=== PATIENT | female | born 1995 | race Caucasian/White ===

== ENCOUNTER 2017-02-19 14:15 | Inpatient (IN) | payer MEDICAID, OTHER ==
[2017-02-19 15:44] LABS: Bilirubin,Urine NEG (Negative); Blood,Urine LG (Negative); Ketones,Urine 80 mg/dL (Negative); Leukocyte Esterase,Urine NEG (Negative); Mucus,Urine FEW /HPF; Nitrite,Urine NEG (Negative); Urobilinogen,Urine < 2.0 mg/dL (<2.0)
[2017-02-19 15:59] LABS: Basophils % (Auto) 0.2 % (0.0-1.8); Hematocrit 46.9 % (30.3-42.9); Hemoglobin 15.2 gm/dl (10.1-14.3); Mean Corpuscular HGB Conc 33 % (30-34); Mean Corpuscular Hemoglobin 28 pg (28-32); Mean Corpuscular Volume 87 fl (79-97); Platelet Count 212 K/mm3 (140-440); Red Blood Count 5.41 M/mm3 (3.65-5.03); Red Cell Distribution Width 13.5 % (13.2-15.2)
[2017-02-19 16:03] LABS: BUN/Creatinine Ratio 14.28; Blood Urea Nitrogen 10 mg/dL (7-17); Calcium 8.7 mg/dL (8.4-10.2); Chloride 93.7 mmol/L (98-107); Glucose 352 mg/dL (65-100); Potassium 3.6 mmol/L (3.6-5.0); Sodium 131 mmol/L (137-145)
[2017-02-19 16:11] LABS: Anion Gap 34 mmol/L
[2017-02-19 16:12] LABS: Carbon Dioxide 7 mmol/L (22-30)
[2017-02-19] MEDS ORDERED: NACL 0.9% 1000 ML 2,000 ML ONE (16:26)
[2017-02-19] MEDS ORDERED: NACL 0.9% 1000 ML 1,000 ML IV ONE (16:36)
[2017-02-19] MEDS ORDERED: D50W (25GM) IV PRN ×2 (16:36→22:22)
--- NOTE | 2017-02-19 16:56 | Emergency Department Report ---
HPI - General Chief Complaint: Hyperglycemia Time Seen by Provider: 02/19/17 16:35 - HPI HPI: This is a 21-year-old female presents emergency Department with a complaint of elevated blood sugar, cough, subjective fevers and sore throat. The patient says that all of her family members at home were dealing with the flu and therefore she feels like she got the flu. Today the patient went to a clinic in order to be started on medication but was found to have a blood sugar of greater than 400 and told to come to the emergency department. The patient has a history of gestational diabetes that occurred 3 years ago and the patient has been diet controlled since that time or thought that the diabetes has resolved. She denies any headache, visual change, chest pain, shortness breath , nausea, vomiting. She denies any other past medical history. She does not have a primary care doctor. ED Past Medical Hx - Past Medical History Previous Medical History?: Yes Hx Hypertension: No Hx Congestive Heart Failure: No Hx Diabetes: Yes (type 1) Hx Deep Vein Thrombosis: No Hx Renal Disease: No Hx Sickle Cell Disease: No Hx Seizures: No Hx Asthma: No Hx COPD: No Hx HIV: No - Surgical History Past Surgical History?: No - Social History Smoking Status: Never Smoker Substance Use Type: None - Medications Home Medications: Home Medications Medication Instructions Recorded Confirmed Last Taken Type No Known Home Medications [No 02/19/17 02/19/17 Unknown History Reported Home Medications] ED Review of Systems ROS: Stated complaint: HYPERGLYCEMIA Other details as noted in HPI Comment: All other systems reviewed and negative Constitutional: chills, fever Eyes: as per HPI ENT: throat pain. denies: ear pain Respiratory: cough. denies: wheezing Cardiovascular: denies: chest pain, palpitations Gastrointestinal: denies: abdominal pain, nausea, diarrhea Genitourinary: denies: urgency, dysuria, discharge Musculoskeletal: denies: back pain, joint swelling, arthralgia Skin: denies: rash, lesions Neurological: denies: headache, weakness, paresthesias Physical Exam - Physical Exam Vital Signs: Vital Signs 02/19/17 02/19/17 14:57 16:34 Temperature 98.7 F Pulse Rate 120 H 112 H Respiratory 18 25 H Rate Blood Pressure 124/86 O2 Sat by Pulse 100 98 Oximetry Physical Exam: GENERAL: The patient is well-developed well-nourished. HEENT: Normocephalic. Atraumatic. Extraocular motions are intact. Patient has moist mucous membranes. Pupils equal reactive to light bilaterally. 2 horizontal nystagmus. NECK: Supple. Trachea is midline. CHEST/LUNGS: Clear to auscultation. There is no respiratory distress noted. HEART/CARDIOVASCULAR: Regular. There is mild to moderate tachycardia. There is no gallop rub or murmur. ABDOMEN: Abdomen is soft, nontender. Patient has normal bowel sounds. There is no abdominal distention. SKIN: Skin is warm and dry. NEURO: The patient is awake, alert, and oriented. The patient is cooperative. The patient has no focal neurologic deficits. The patient has normal speech. Cranial nerves II through XII grossly intact. MUSCULOSKELETAL: There is no tenderness or deformity. There is no limitation range of motion. There is no evidence of acute injury. Cap refill less than 2 seconds. ED Course Vital Signs 02/19/17 02/19/17 14:57 16:34 Temperature 98.7 F Pulse Rate 120 H 112 H Respiratory 18 25 H Rate Blood Pressure 124/86 O2 Sat by Pulse 100 98 Oximetry ED Medical Decision Making - Lab Data Result diagrams: 02/19/17 15:33 02/19/17 16:59 - Medical Decision Making 21-year-old female presents to the emergency Department with complaints of elevated blood sugar found at a clinic where she went to discuss sore throat and exposure to flu. Patient is being tested for both strep and influenza but those results are not back yet. The patient has hyperglycemia but worst, the patient has high anion gap metabolic acidosis with a pH of 7 and a current bicarbonate level of 5. Patient placed on an insulin drip and is receiving IV fluid resuscitation. She'll be admitted to the ICU is been accepted for admission by the hospitalist, Dr. Van. - Differential Diagnosis influenza, strep pharyngitis, DKA, HHNK Critical Care Time: No Critical care attestation.: If time is entered above; I have spent that time in minutes in the direct care of this critically ill patient, excluding procedure time. ED Disposition Clinical Impression: Dehydration, High anion gap metabolic acidosis DKA (diabetic ketoacidoses) Qualifiers: Diabetes mellitus type: other specified (including DACIA) Diabetes mellitus complication detail: without coma Qualified Code(s): E13.10 - Other specified diabetes mellitus with ketoacidosis without coma Disposition: OP ADMITTED IP TO THIS HOSP Is pt being admited?: Yes Condition: Stable Instructions: Diabetic Ketoacidosis (ED)
[2017-02-19] MEDS ORDERED: NovoLIN R 100 UNITS in NACL 0.9% 99 ML IV SCH (17:00)
--- NOTE | 2017-02-19 17:40 | Admit Criteria Form ---
Admission Criteria Documentation: DIABETES Clinical Indications for Admission to Inpatient Care (Place 'X' for any and all applicable criteria): Admission is indicated by presence of ALL (if I & II) or ANY ONE (if III or IV) of the following (1)(2)(3)(4): [X]I. Diabetes is uncontrolled as indicated by ANY ONE of the following: [X]a) Diabetic ketoacidosis as indicated by ALL of the following (8): [X]i) Hyperglycemia (eg, plasma glucose greater than 200 mg/ dL (11.1 mmol/L)) [X]ii) Acidosis (eg, arterial pH less than 7.30, serum bicarbonate level less than 15 mEq/L (mmol/L)) [ ]iii) Moderate ketonuria or ketonemia [ ]b) Hyperglycemic hyperosmolar state as indicated by ALL of the following(9)(10): [ ]i) Neurologic dysfunction (eg, stupor, coma, hemiparesis , seizure)(13) [ ]ii) Plasma glucose greater than 600 mg/dL (33.3 mmol/L) [ ]iii) Serum osmolality greater than 320 mOsm/kg (mmol/kg) [ X]c) Severe signs or symptoms secondary to hyperglycemia indicated by ANY ONE of the following: [ ]i) Altered mental status(10) [ ]ii) Significant hypovolemia or dehydration [ ]iii) Intractable nausea or vomiting [ ]iv) Unexplained fever or severe infection [X ]v) Severe electrolyte abnormality (eg, hypokalemia, hyperkalemia, hypernatremia) [ ]II. Management at other levels of care (Also use Diabetes: Observation Care as appropriate) is not feasible because of ANY ONE of the following: [ ]a) Condition was not adequately corrected with treatment at other levels of care. [ ]b) Treatment at other levels of care is not appropriate because of condition severity (eg, hyperosmolar coma). [ ]III. Contraindications and/or Inappropriate clinical situations for Observational Care in patients with Diabetes, when ANY ONE of the following is required: [ ]a) Patient require specific diagnostic workup or therapeutic intervention 22 [ ]b) Patient with abnormal vital signs or altered mental status 23 [ ]IV. General contraindications and/or Inappropriate clinical situations for Observational Care in patients with Diabetes, when ANY ONE of the following is required: [ ]a) Prediction of prolongation of LOS based on ANY ONE of the following may be considered as a contraindication for observational care 2, 3, 4, 5, 6, 7, 8, 9, 10, 11 [ ]i) Age > 65 yrs. [ ]ii) Patient arriving by ambulance [ ]iii) Patient with high acuity [ ]iv) Patient requiring vital sign monitoring [ ]v) Patient on IV medication [ ]b) Systolic blood pressures 180mmHg 3,12 [ ]c) Patient with altered mental status including delirium and other alteration of consciousness, (3) [ ]d) Patient whose discharge disposition will be to a longterm home or rehabilitation home should not be managed in Emergency Department Observation Unit. CMS rule requires 3 days hospital stay before such placement.3,13 [ ]e) Patient with failure to thrive due to broad array of etiologies 3,16,17 [ ]f) Inability to ambulate 3,14 Extended stay beyond goal length of stay may be needed for(3)(20): [ ]a) Treatment of precipitating causes [ ]b) Development of hypoglycemia [ ]c) Complications of treatment [ ]d) Complications of decompensated diabetes (eg, acute gastric dilatation, persistent metabolic or neurologic derangement) [ ]e) Active Comorbidities [ ]f) Older patients( 65 years or older) The original [employer] content created by [employer] has been revised. The portions of the content which have been revised are identified through the use of italic text or in bold,and [facility] has neither reviewed nor approved the modified material. All other unmodified content is copyright [employer]. Please see references footnoted in the original [employer] edition 2016 Admission Criteria Met: Yes
[2017-02-19 17:41] LABS: BUN/Creatinine Ratio 18.33; Blood Urea Nitrogen 11 mg/dL (7-17); Calcium 8.2 mg/dL (8.4-10.2); Chloride 97.6 mmol/L (98-107); Glucose 340 mg/dL (65-100); Magnesium 1.8 mg/dL (1.7-2.3); Phosphorous 3.4 mg/dL (2.5-4.5); Potassium 3.5 mmol/L (3.6-5.0); Sodium 131 mmol/L (137-145)
[2017-02-19 17:44] LABS: Anion Gap 32 mmol/L; Carbon Dioxide 5 mmol/L (22-30)
[2017-02-19] MEDS ORDERED: DILAUDID IV PRN (17:53)
[2017-02-19] MEDS: ZOFRAN IV PRN (18:01)
[2017-02-19] MEDS ORDERED: DILAUDID IV ONE (20:16)
[2017-02-19 20:18] LABS: Blood Urea Nitrogen 9 mg/dL (7-17); Calcium 7.4 mg/dL (8.4-10.2); Chloride 103.6 mmol/L (98-107); Glucose 208 mg/dL (65-100); Sodium 134 mmol/L (137-145)
[2017-02-19 20:23] LABS: Anion Gap 26 mmol/L
[2017-02-19 20:25] LABS: Carbon Dioxide 7 mmol/L (22-30)
[2017-02-19] MEDS ORDERED: D5W/0.45% NACL/KCL 20 MEQ 20 MEQ/1,000 ML BAG IV ONE (21:24)
[2017-02-19 21:31] LABS: Blood Urea Nitrogen 9 mg/dL (7-17); Calcium 7.5 mg/dL (8.4-10.2); Chloride 105.8 mmol/L (98-107); Glucose 172 mg/dL (65-100); Sodium 134 mmol/L (137-145)
[2017-02-19] MEDS: D5W/0.45% NACL/KCL 20 MEQ 20 MEQ/1,000 ML BAG IV SCH (21:45)
[2017-02-19 21:55] LABS: Carbon Dioxide 7 mmol/L (22-30)
[2017-02-19 21:57] LABS: Anion Gap 24 mmol/L; Potassium 2.9 mmol/L (3.6-5.0)
--- NOTE | 2017-02-19 22:15 | Event Note ---
Date: 02/19/17 See H/p in reports DKA Noncompliant
[2017-02-19] MEDS ORDERED: MILK OF MAGNESIA PO PRN (22:17)
[2017-02-19] MEDS ORDERED: AMBIEN PO PRN (22:17)
[2017-02-19] MEDS ORDERED: ALUM-MAG HYDROX-SIMETH 200-200-20MG/5ML PO PRN (22:17)
[2017-02-19] MEDS ORDERED: DULCOLAX PR PRN (22:17)
[2017-02-19 23:17] LABS: Blood Urea Nitrogen 9 mg/dL (7-17); Calcium 7.5 mg/dL (8.4-10.2); Chloride 105.3 mmol/L (98-107); Glucose 180 mg/dL (65-100); Magnesium 1.5 mg/dL (1.7-2.3); Phosphorous 1.4 mg/dL (2.5-4.5); Sodium 133 mmol/L (137-145)
[2017-02-19] MEDS: NovoLIN R 100 UNITS in NACL 0.9% 99 ML IV SCH (23:17)
[2017-02-19] MEDS: KCL 10MEQ/100ML 10 MEQ/100 ML BAG IV SCH (23:23)
[2017-02-19 23:29] LABS: Anion Gap 23 mmol/L; Carbon Dioxide 8 mmol/L (22-30)
[2017-02-20] MEDS ORDERED: KCL 10MEQ/100ML 10 MEQ/100 ML BAG IV ONE (00:01)
[2017-02-20] MEDS ORDERED: DILAUDID ONE (00:02)
[2017-02-20] MEDS ORDERED: ZOFRAN ONE (00:02)
[2017-02-20 00:15] LABS: Blood Urea Nitrogen 8 mg/dL (7-17); Calcium 7.6 mg/dL (8.4-10.2); Chloride 104.4 mmol/L (98-107); Glucose 204 mg/dL (65-100); Sodium 132 mmol/L (137-145)
[2017-02-20 00:19] LABS: Anion Gap 24 mmol/L; Carbon Dioxide 7 mmol/L (22-30)
[2017-02-20] MEDS: ZOFRAN IV PRN (01:10)
[2017-02-20] MEDS: DILAUDID IV PRN ×7 (01:10→21:18)
[2017-02-20] MEDS: KCL 10MEQ/100ML 10 MEQ/100 ML BAG IV SCH ×3 (03:15→04:32)
[2017-02-20 04:31] LABS: Blood Urea Nitrogen 8 mg/dL (7-17); Calcium 7.7 mg/dL (8.4-10.2); Glucose 243 mg/dL (65-100); Potassium 3.1 mmol/L (3.6-5.0); Sodium 132 mmol/L (137-145)
[2017-02-20 04:36] LABS: Anion Gap 20 mmol/L; Carbon Dioxide 8 mmol/L (22-30)
[2017-02-20 07:59] LABS: Anion Gap 18 mmol/L; Blood Urea Nitrogen 7 mg/dL (7-17); Calcium 7.9 mg/dL (8.4-10.2); Carbon Dioxide 10 mmol/L (22-30); Chloride 106.3 mmol/L (98-107); Glucose 216 mg/dL (65-100); Potassium 3.1 mmol/L (3.6-5.0); Sodium 131 mmol/L (137-145)
[2017-02-20] MEDS: NovoLIN R 100 UNITS in NACL 0.9% 99 ML IV SCH (09:28)
[2017-02-20] MEDS ORDERED: K-DUR PO ONE (09:36)
[2017-02-20] MEDS: LOVENOX SUB-Q SCH (10:02)
[2017-02-20 11:25] LABS: Anion Gap 18 mmol/L; Blood Urea Nitrogen 5 mg/dL (7-17); Calcium 7.9 mg/dL (8.4-10.2); Carbon Dioxide 10 mmol/L (22-30); Chloride 103.9 mmol/L (98-107); Glucose 252 mg/dL (65-100); Sodium 129 mmol/L (137-145)
[2017-02-20 11:29] LABS: Potassium 2.9 mmol/L (3.6-5.0)
[2017-02-20] MEDS ORDERED: PNEUMOVAX 23 IM ONE (12:00)
--- NOTE | 2017-02-20 12:06 | Progress Note ---
Assessment and Plan Assessment and plan: 1. Sepsis. Patient least criteria given the tachycardia, tachypnea, leukocytosis and diagnosis of right otitis media. Patient will be placed on a sepsis pathway. We will follow-up blood cultures and trend lactic acid levels. Start IV antibiotic. 2. Right otitis media. Continue antibiotics as noted above. 3. DKA. Patient will be continued on IV insulin drip and IV fluid hydration. Patient will be transitioned to long-acting insulin once the anion gap is closed. 4. DVT prophylaxis. Continue Lovenox. History Interval history: This is a 21-year-old female presents emergency Department with a complaint of elevated blood sugar, cough, subjective fevers and sore throat. Patient was admitted with a diagnosis of DKA. Hospitalist Physical - Constitutional Vitals: Temp Pulse Resp BP Pulse Ox 99.1 F 121 H 28 H 115/66 93 02/20/17 08:35 02/20/17 10:00 02/20/17 10:00 02/20/17 10:00 02/20/17 10:00 General appearance: Present: no acute distress, well-nourished - EENT Eyes: Present: PERRL, EOM intact ENT: hearing intact, clear oral mucosa, dentition normal - Neck Neck: Present: supple, normal ROM - Respiratory Respiratory effort: normal Respiratory: bilateral: CTA - Cardiovascular Rhythm: regular Heart Sounds: Present: S1 & S2. Absent: gallop, rub - Extremities Extremities: no ischemia, No edema, Full ROM - Abdominal General gastrointestinal: soft, non-tender, non-distended, normal bowel sounds - Integumentary Integumentary: Present: clear, warm, dry - Neurologic Neurologic: CNII-XII intact, moves all extremities Results - Labs CBC & Chem 7: 02/19/17 15:33 02/20/17 10:56 Labs: Laboratory Last Values WBC 16.0 K/mm3 (4.5-11.0) H 02/19/17 15:33 RBC 5.41 M/mm3 (3.65-5.03) H 02/19/17 15:33 Hgb 15.2 gm/dl (10.1-14.3) H 02/19/17 15:33 Hct 46.9 % (30.3-42.9) H 02/19/17 15:33 MCV 87 fl (79-97) 02/19/17 15:33 MCH 28 pg (28-32) 02/19/17 15:33 MCHC 33 % (30-34) 02/19/17 15:33 RDW 13.5 % (13.2-15.2) 02/19/17 15:33 Plt Count 212 K/mm3 (140-440) 02/19/17 15:33 Lymph % (Auto) 8.9 % (13.4-35.0) L 02/19/17 15:33 [place] % (Auto) 7.8 % (0.0-7.3) H 02/19/17 15:33 Eos % (Auto) 0.0 % (0.0-4.3) 02/19/17 15:33 Baso % (Auto) 0.2 % (0.0-1.8) 02/19/17 15:33 Lymph # 1.4 K/mm3 (1.2-5.4) 02/19/17 15:33 [place] # 1.2 K/mm3 (0.0-0.8) H 02/19/17 15:33 Eos # 0.0 K/mm3 (0.0-0.4) 02/19/17 15:33 Baso # 0.0 K/mm3 (0.0-0.1) 02/19/17 15:33 Seg Neutrophils % 83.1 % (40.0-70.0) H 02/19/17 15:33 Seg Neutrophils # 13.3 K/mm3 (1.8-7.7) H 02/19/17 15:33 VBG pH 7.029 (7.320-7.420) L* 02/19/17 15:33 Sodium 129 mmol/L (137-145) L 02/20/17 10:56 Potassium 2.9 mmol/L (3.6-5.0) L* 02/20/17 10:56 Chloride 103.9 mmol/L (98-107) 02/20/17 10:56 Carbon Dioxide 10 mmol/L (22-30) L 02/20/17 10:56 Anion Gap 18 mmol/L 02/20/17 10:56 BUN 5 mg/dL (7-17) L 02/20/17 10:56 Creatinine 0.4 mg/dL (0.7-1.2) L 02/20/17 10:56 Estimated GFR > 60 ml/min 02/20/17 10:56 BUN/Creatinine Ratio 12.50 % 02/20/17 10:56 Glucose 252 mg/dL (65-100) H 02/20/17 10:56 POC Glucose 233 (70-105) H 02/20/17 00:46 Calcium 7.9 mg/dL (8.4-10.2) L 02/20/17 10:56 Phosphorus 1.4 mg/dL (2.5-4.5) L D 02/19/17 22:40 Magnesium 1.5 mg/dL (1.7-2.3) L 02/19/17 22:40 Urine Color Yellow (Yellow) 02/19/17 15:00 Urine Turbidity Clear (Clear) 02/19/17 15:00 Urine pH 5.0 (5.0-7.0) 02/19/17 15:00 Ur Specific [place] 1.024 (1.003-1.030) 02/19/17 15:00 Urine Protein 100 mg/dl mg/dL (Negative) 02/19/17 15:00 Urine Glucose (UA) >=500 mg/dL (Negative) 02/19/17 15:00 Urine Ketones 80 mg/dL (Negative) 02/19/17 15:00 Urine Blood Lg (Negative) 02/19/17 15:00 Urine Nitrite Neg (Negative) 02/19/17 15:00 Urine Bilirubin Neg (Negative) 02/19/17 15:00 Urine Urobilinogen < 2.0 mg/dL (<2.0) 02/19/17 15:00 Ur Leukocyte Esterase Neg (Negative) 02/19/17 15:00 Urine WBC (Auto) 1.0 /HPF (0.0-6.0) 02/19/17 15:00 Urine RBC (Auto) 1.0 /HPF (0.0-6.0) 02/19/17 15:00 U Epithel Cells (Auto) 1.0 /HPF (0-13.0) 02/19/17 15:00 Urine Mucus Few /HPF 02/19/17 15:00 Urine HCG, Qual Negative (Negative) 02/19/17 15:00 Ketones mmol/L (-0.28) 02/19/17 15:33
[2017-02-20 14:53] LABS: Anion Gap 18 mmol/L; Blood Urea Nitrogen 5 mg/dL (7-17); Calcium 8.5 mg/dL (8.4-10.2); Carbon Dioxide 11 mmol/L (22-30); Chloride 103.1 mmol/L (98-107); Glucose 233 mg/dL (65-100); Sodium 129 mmol/L (137-145)
[2017-02-20] MEDS: ROCEPHIN/NS 1 GM/50 ML 1 GM/50 ML BAG IV SCH (17:00)
[2017-02-20] MEDS ORDERED: POTASSIUM CHLORIDE FEEDTUBE ONE (18:00)
--- NOTE | 2017-02-20 21:09 | History and Physical Report ---
CHIEF COMPLAINT: High blood sugars. HISTORY OF PRESENT ILLNESS: A 21-year-old female who comes to Emergency Room for severely high blood sugars. Also, subjective fever, sore throat, and cough. The patient says that all of her family members were dealing with flu and she has got the flu. The patient went to clinic today and was started on medication, but they found her blood sugar to be higher than 500 and was sent to the ER. The patient had history gestational diabetes three years ago and did not follow up on her possibility of having diabetes and continuously not taking any medicine for diabetes over the three years. She is not even aware that she has diabetes. PAST MEDICAL HISTORY: No significant past medical history except for gestational diabetes. PAST SURGICAL HISTORY: None. SOCIAL HISTORY: Does not smoke. No alcohol. CURRENT MEDICATIONS: None. REVIEW OF SYSTEMS: Significant for, CONSTITUTIONAL: No fevers or chills. EYES: Blurring of vision present. Also, sore throat present. RESPIRATORY SYSTEM: No cough, no shortness of breath, no wheezing. CARDIOVASCULAR SYSTEM: No chest pain, no palpitations. GASTROINTESTINAL: Nausea present. No vomiting. GENITOURINARY SYSTEM: No dysuria and no flank pain. MUSCULOSKELETAL SYSTEM: No joint pains. CENTRAL NERVOUS SYSTEM: No syncope, no seizures. Slightly altered sensorium. A 14-point review of systems done, otherwise negative. In general, the patient feels fever or sore throat and chills, feels weak, and nauseous. PHYSICAL EXAMINATION: GENERAL: Young female lying in bed, well developed, well nourished. VITAL SIGNS: Blood pressure is 124/86, temperature is 98.7, pulse is 120, respiratory rate is 18. HEENT: Dry mucous membranes. NECK: Supple, no lymphadenopathy, no thyromegaly. LUNGS: Clear to auscultation and percussion. Good air entry. CARDIOVASCULAR: S1, S2 heard. No gallop, no murmur, no rub. Apical impulse in the left fifth intercostal space and midclavicular line. ABDOMEN: Soft and benign. No hepatosplenomegaly. No guarding, no rigidity. Hernial orifices are normal. EXTREMITIES: Good pedal pulses. No pedal edema. CENTRAL NERVOUS SYSTEM: Alert and oriented x4, nonfocal exam. LABORATORY DATA: Sodium is 134, potassium is 3.0, chloride is 103, bicarbonate 7, BUN and creatinine is 99 and 0.5, glucose is 257, calcium 7.4, phosphorus is 3.4, magnesium is 1.8. White count is 16,000. H and H is 15.0 and 46.9, platelet count is 212,000. Initial sodium was 129, bicarbonate was 11. ASSESSMENT AND PLAN: 1. Sepsis. The patient meets the criteria for sepsis. The patient has acute pharyngitis. Blood cultures. IV antibiotics added. The patient was started on IV ceftriaxone q.24 hours. 2. Diabetic ketoacidosis, probably precipitated by sepsis. IV insulin drip for the time being and moderate amount of insulin at the time of discharge. 3. Diabetes education. 4. Hypokalemia, to be supplemented. 5. Deep venous thrombosis prophylaxis, continue Lovenox. 6. Right otitis media, continue antibiotics, ear drops as necessary. Outpatient ENT consult. CRITICAL CARE STATEMENT: The high probability of clinically significant sudden or life-threatening deterioration is cardiopulmonary, endocrine systems required my full and direct attention, intervention, and personal management. Aggregate critical care time was 35 minutes. The time is in addition to the time spent performing the reported procedures that includes the following. Data review and interpretation, patient assessment and monitoring of vital signs, documentation, medication orders and management. JOB# [id number] SHEFALI/OVIDIO
[2017-02-20 23:17] LABS: Anion Gap 20 mmol/L; BUN/Creatinine Ratio 13.33; Blood Urea Nitrogen 4 mg/dL (7-17); Calcium 8.1 mg/dL (8.4-10.2); Carbon Dioxide 11 mmol/L (22-30); Chloride 106.5 mmol/L (98-107); Glucose 210 mg/dL (65-100); Sodium 134 mmol/L (137-145)
[2017-02-20] MEDS: CEPACOL X STRENGTH MM PRN (23:30)
[2017-02-21] MEDS: ZOFRAN IV PRN ×2 (01:12→04:29)
[2017-02-21] MEDS: POTASSIUM CHLORIDE PO SCH ×2 (01:30→04:27)
[2017-02-21 03:53] LABS: Bacteria,Urine 1+ /HPF (Negative); Bilirubin,Urine NEG (Negative); Blood,Urine LG (Negative); Granular Casts,Urine 2 /LPF; Ketones,Urine 80 mg/dL (Negative); Leukocyte Esterase,Urine NEG (Negative); Mucus,Urine FEW /HPF; Nitrite,Urine NEG (Negative); Urobilinogen,Urine < 2.0 mg/dL (<2.0)
[2017-02-21] MEDS: D5W/0.45% NACL/KCL 20 MEQ 20 MEQ/1,000 ML BAG IV SCH (04:30)
[2017-02-21 04:51] LABS: Hematocrit 34.1 % (30.3-42.9); Hemoglobin 11.8 gm/dl (10.1-14.3); Mean Corpuscular HGB Conc 35 % (30-34); Mean Corpuscular Hemoglobin 28 pg (28-32); Mean Corpuscular Volume 81 fl (79-97); Platelet Count 175 K/mm3 (140-440); Red Cell Distribution Width 13.4 % (13.2-15.2); White Blood Count 12.8 K/mm3 (4.5-11.0)
[2017-02-21] MEDS: NovoLIN R 100 UNITS in NACL 0.9% 99 ML IV SCH (05:00)
[2017-02-21] MEDS: DILAUDID IV PRN ×6 (05:48→22:15)
[2017-02-21 08:19] LABS: Anion Gap 14 mmol/L; BUN/Creatinine Ratio 13.33; Blood Urea Nitrogen 4 mg/dL (7-17); Calcium 8.3 mg/dL (8.4-10.2); Carbon Dioxide 15 mmol/L (22-30); Chloride 110.7 mmol/L (98-107); Glucose 127 mg/dL (65-100); Potassium 3.8 mmol/L (3.6-5.0); Sodium 136 mmol/L (137-145)
[2017-02-21] MEDS: LOVENOX SUB-Q SCH (09:59)
[2017-02-21] MEDS ORDERED: ROCEPHIN/NS 1 GM/50 ML 1 GM/50 ML BAG IV SCH (10:00)
[2017-02-21 10:21] LABS: Blastocytes % (Manual) 0 %; Eosinophils % (Manual) 0 % (0.0-4.3)
[2017-02-21 10:22] LABS: Anisocytosis 1+; Diff Status Complete
--- NOTE | 2017-02-21 11:25 | Progress Note ---
Assessment and Plan Assessment and plan: 1. Sepsis. Patient least criteria given the tachycardia, tachypnea, leukocytosis and diagnosis of right otitis media. Patient will be placed on a sepsis pathway. We will follow-up blood cultures and trend lactic acid levels. Start IV antibiotic. 2. Right otitis media. Continue antibiotics as noted above. 3. UTI. U/A reveals 35 WBCs 4. DKA. Patient will be continued on IV insulin drip and IV fluid hydration. Patient will be transitioned to long-acting insulin once the anion gap is closed. 5. DVT prophylaxis. Continue Lovenox. History Interval history: This is a 21-year-old female presents emergency Department with a complaint of elevated blood sugar, cough, subjective fevers and sore throat. Patient was admitted with a diagnosis of DKA. Patient complains of N/V 3 last evening. Hospitalist Physical - Constitutional Vitals: Temp Pulse Resp BP Pulse Ox 98.6 F 96 H 16 94/52 96 02/21/17 08:00 02/21/17 08:51 02/21/17 08:51 02/21/17 08:51 02/21/17 08:51 General appearance: Present: no acute distress, well-nourished - EENT Eyes: Present: PERRL, EOM intact ENT: hearing intact, clear oral mucosa, dentition normal - Neck Neck: Present: supple, normal ROM - Respiratory Respiratory effort: normal Respiratory: bilateral: CTA - Cardiovascular Rhythm: regular Heart Sounds: Present: S1 & S2. Absent: gallop, rub - Extremities Extremities: no ischemia, No edema, Full ROM - Abdominal General gastrointestinal: soft, non-tender, non-distended, normal bowel sounds - Integumentary Integumentary: Present: clear, warm, dry - Neurologic Neurologic: CNII-XII intact, moves all extremities Results - Labs CBC & Chem 7: 02/21/17 04:00 02/21/17 07:35 Labs: Laboratory Last Values WBC 12.8 K/mm3 (4.5-11.0) H 02/21/17 04:00 RBC 4.20 M/mm3 (3.65-5.03) 02/21/17 04:00 Hgb 11.8 gm/dl (10.1-14.3) D 02/21/17 04:00 Hct 34.1 % (30.3-42.9) D 02/21/17 04:00 MCV 81 fl (79-97) D 02/21/17 04:00 MCH 28 pg (28-32) 02/21/17 04:00 MCHC 35 % (30-34) H 02/21/17 04:00 RDW 13.4 % (13.2-15.2) 02/21/17 04:00 Plt Count 175 K/mm3 (140-440) 02/21/17 04:00 Lymph % (Auto) 8.9 % (13.4-35.0) L 02/19/17 15:33 [place] % (Auto) 7.8 % (0.0-7.3) H 02/19/17 15:33 Eos % (Auto) 0.0 % (0.0-4.3) 02/19/17 15:33 Baso % (Auto) 0.2 % (0.0-1.8) 02/19/17 15:33 Lymph # 1.4 K/mm3 (1.2-5.4) 02/19/17 15:33 [place] # 1.2 K/mm3 (0.0-0.8) H 02/19/17 15:33 Eos # 0.0 K/mm3 (0.0-0.4) 02/19/17 15:33 Baso # 0.0 K/mm3 (0.0-0.1) 02/19/17 15:33 Add Manual Diff Complete 02/21/17 04:00 Total Counted 100 02/21/17 04:00 Seg Neutrophils % 83.1 % (40.0-70.0) H 02/19/17 15:33 Seg Neuts % (Manual) 56.0 % (40.0-70.0) 02/21/17 04:00 Band Neutrophils % 30.0 % 02/21/17 04:00 Lymphocytes % (Manual) 5.0 % (13.4-35.0) L 02/21/17 04:00 Reactive Lymphs % (Man) 0 % 02/21/17 04:00 Monocytes % (Manual) 5.0 % (0.0-7.3) 02/21/17 04:00 Eosinophils % (Manual) 0 % (0.0-4.3) 02/21/17 04:00 Metamyelocytes % 3.0 % 02/21/17 04:00 Myelocytes % 1.0 % 02/21/17 04:00 Promyelocytes % 0 % 02/21/17 04:00 Blast Cells % 0 % 02/21/17 04:00 Nucleated RBC % Not Reportable 02/21/17 04:00 Seg Neutrophils # 13.3 K/mm3 (1.8-7.7) H 02/19/17 15:33 Seg Neutrophils # Man 7.2 K/mm3 (1.8-7.7) 02/21/17 04:00 Band Neutrophils # 3.8 K/mm3 02/21/17 04:00 Lymphocytes # (Manual) 0.6 K/mm3 (1.2-5.4) L 02/21/17 04:00 Abs React Lymphs (Man) 0.0 K/mm3 02/21/17 04:00 Monocytes # (Manual) 0.6 K/mm3 (0.0-0.8) 02/21/17 04:00 Eosinophils # (Manual) 0.0 K/mm3 (0.0-0.4) 02/21/17 04:00 Basophils # (Manual) 0.0 K/mm3 (0.0-0.1) 02/21/17 04:00 Metamyelocytes # 0.4 K/mm3 02/21/17 04:00 Myelocytes # 0.1 K/mm3 02/21/17 04:00 Promyelocytes # 0.0 K/mm3 02/21/17 04:00 Blast Cells # 0.0 K/mm3 02/21/17 04:00 WBC Morphology Not Reportable 02/21/17 04:00 Hypersegmented Neuts Not Reportable 02/21/17 04:00 Hyposegmented Neuts Not Reportable 02/21/17 04:00 Hypogranular Neuts Not Reportable 02/21/17 04:00 Smudge Cells Not Reportable 02/21/17 04:00 Toxic Granulation Not Reportable 02/21/17 04:00 Toxic Vacuolation Not Reportable 02/21/17 04:00 Dohle Bodies Not Reportable 02/21/17 04:00 Pelger-Huet Anomaly Not Reportable 02/21/17 04:00 Ramesh Rods Not Reportable 02/21/17 04:00 Platelet Estimate Not Reportable 02/21/17 04:00 Clumped Platelets Not Reportable 02/21/17 04:00 Plt Clumps, EDTA Not Reportable 02/21/17 04:00 Large Platelets Not Reportable 02/21/17 04:00 Giant Platelets Not Reportable 02/21/17 04:00 Platelet Satelliting Not Reportable 02/21/17 04:00 Plt Morphology Comment Not Reportable 02/21/17 04:00 RBC Morphology Not Reportable 02/21/17 04:00 Dimorphic RBCs Not Reportable 02/21/17 04:00 Polychromasia Not Reportable 02/21/17 04:00 Hypochromasia Not Reportable 02/21/17 04:00 Poikilocytosis Not Reportable 02/21/17 04:00 Anisocytosis 1+ 02/21/17 04:00 Microcytosis Not Reportable 02/21/17 04:00 Macrocytosis Not Reportable 02/21/17 04:00 Spherocytes Not Reportable 02/21/17 04:00 Pappenheimer Bodies Not Reportable 02/21/17 04:00 Sickle Cells Not Reportable 02/21/17 04:00 Target Cells Not Reportable 02/21/17 04:00 Tear Drop Cells Not Reportable 02/21/17 04:00 Ovalocytes Not Reportable 02/21/17 04:00 Helmet Cells Not Reportable 02/21/17 04:00 Esteves-Penbrook Bodies Not Reportable 02/21/17 04:00 [place] Rings Not Reportable 02/21/17 04:00 Elberfeld Cells Not Reportable 02/21/17 04:00 Bite Cells Not Reportable 02/21/17 04:00 Crenated Cell Not Reportable 02/21/17 04:00 Elliptocytes Not Reportable 02/21/17 04:00 Acanthocytes (Spur) Not Reportable 02/21/17 04:00 Rouleaux Not Reportable 02/21/17 04:00 Hemoglobin C Crystals Not Reportable 02/21/17 04:00 Schistocytes Not Reportable 02/21/17 04:00 Malaria parasites Not Reportable 02/21/17 04:00 Syed Bodies Not Reportable 02/21/17 04:00 Hem Pathologist Commnt No 02/21/17 04:00 VBG pH 7.029 (7.320-7.420) L* 02/19/17 15:33 Sodium 136 mmol/L (137-145) L 02/21/17 07:35 Potassium 3.8 mmol/L (3.6-5.0) D 02/21/17 07:35 Chloride 110.7 mmol/L (98-107) H 02/21/17 07:35 Carbon Dioxide 15 mmol/L (22-30) L 02/21/17 07:35 Anion Gap 14 mmol/L 02/21/17 07:35 BUN 4 mg/dL (7-17) L 02/21/17 07:35 Creatinine 0.3 mg/dL (0.7-1.2) L 02/21/17 07:35 Estimated GFR > 60 ml/min 02/21/17 07:35 BUN/Creatinine Ratio 13.33 % 02/21/17 07:35 Glucose 127 mg/dL (65-100) H 02/21/17 07:35 POC Glucose 148 (70-105) H 02/21/17 09:57 Lactic Acid 1.0 mmol/L (0.7-2.0) 02/20/17 14:41 Calcium 8.3 mg/dL (8.4-10.2) L 02/21/17 07:35 Phosphorus 1.4 mg/dL (2.5-4.5) L D 02/19/17 22:40 Magnesium 1.5 mg/dL (1.7-2.3) L 02/19/17 22:40 Urine Color [place] (Yellow) 02/21/17 03:20 Urine Turbidity Clear (Clear) 02/21/17 03:20 Urine pH 6.0 (5.0-7.0) 02/21/17 03:20 Ur Specific [place] 1.020 (1.003-1.030) 02/21/17 03:20 Urine Protein 100 mg/dl mg/dL (Negative) 02/21/17 03:20 Urine Glucose (UA) >=500 mg/dL (Negative) 02/21/17 03:20 Urine Ketones 80 mg/dL (Negative) 02/21/17 03:20 Urine Blood Lg (Negative) 02/21/17 03:20 Urine Nitrite Neg (Negative) 02/21/17 03:20 Urine Bilirubin Neg (Negative) 02/21/17 03:20 Urine Urobilinogen < 2.0 mg/dL (<2.0) 02/21/17 03:20 Ur Leukocyte Esterase Neg (Negative) 02/21/17 03:20 Urine WBC (Auto) 35.0 /HPF (0.0-6.0) H 02/21/17 03:20 Urine RBC (Auto) 20.0 /HPF (0.0-6.0) 02/21/17 03:20 U Epithel Cells (Auto) 15.0 /HPF (0-13.0) H 02/21/17 03:20 Urine Bacteria (Auto) 1+ /HPF (Negative) 02/21/17 03:20 Hyaline Casts 3 /LPF 02/21/17 03:20 Granular Casts 2 /LPF 02/21/17 03:20 Urine Mucus Few /HPF 02/21/17 03:20 Urine HCG, Qual Negative (Negative) 02/19/17 15:00 Ketones mmol/L (-0.28) 02/19/17 15:33
[2017-02-21] MEDS ORDERED: PNEUMOVAX 23 IM ONE (12:00)
[2017-02-21] MEDS ORDERED: D50W (25GM) IV PRN (13:26)
--- NOTE | 2017-02-21 13:40 | Consultation ---
History of Present Illness Consult date: 02/21/17 Requesting physician: ROCCO ZIMMERMAN Reason for consult: other (DKA) History of present illness: PULMONARY/CCM CONSULT NOTE (Full note dictated # [id number] Please see dictated notes for full details Medications and Allergies Allergies Allergy/AdvReac Type Severity Reaction Status Date / Time No Known Allergies Allergy Unverified 04/07/14 11:25 Home Medications Medication Instructions Recorded Confirmed Last Taken Type No Known Home Medications [No 02/19/17 02/19/17 Unknown History Reported Home Medications] Active Meds: Active Medications Acetaminophen (Tylenol) 650 mg FEEDTUBE Q6H PRN PRN Reason: Fever >101 Al Hydrox/Mg Hydrox/Simethicone (Alum-Mag Hydrox-Simeth [phone]/5ml) 30 ml PO Q4H PRN PRN Reason: Indigestion Benzocaine/Menthol (Cepacol X Strength) 1 each MM Q2H PRN PRN Reason: Sore Throat Last Admin: 02/20/17 23:30 Dose: 1 each Bisacodyl (Dulcolax) 10 mg CO QDAY PRN PRN Reason: constipation unrelieved by MOM Dextrose (D50w (25gm)) 50 ml IV PRN PRN PRN Reason: Hypoglycemia Enoxaparin Sodium (Lovenox) 40 mg SUB-Q QDAY UZIEL Last Admin: 02/21/17 09:59 Dose: 40 mg Hydromorphone HCl (Dilaudid) 0.5 mg IV Q3H PRN PRN Reason: Pain , Severe (7-10) Last Admin: 02/21/17 09:35 Dose: 0.5 mg Potassium Chloride/Dextrose/Sod Cl (D5w/0.45% Nacl/Kcl 20 Meq) 20 meq in 1,000 mls @ 125 mls/hr IV DIRECT UZIEL Last Admin: 02/21/17 04:30 Dose: 125 mls/hr Ceftriaxone Sodium (Rocephin/Ns 1 Gm/50 Ml) 1 gm in 50 mls @ 100 mls/hr IV Q24H UZIEL PRN Reason: Protocol Last Admin: 02/20/17 17:00 Dose: 100 mls/hr Insulin Human Isoph/Insulin Regular (Novolin 70/30) 15 unit SUB-Q BIDDIAB UZIEL Insulin Human Regular (Novolin R) 0 units SUB-Q ACHS UZIEL PRN Reason: Protocol Magnesium Hydroxide (Milk Of Magnesia) 30 ml PO Q4H PRN PRN Reason: Constipation Ondansetron HCl (Zofran) 4 mg IV Q3H PRN PRN Reason: Nausea Last Admin: 02/21/17 04:29 Dose: 4 mg Zolpidem Tartrate (Ambien) 5 mg PO QHS PRN PRN Reason: Sleeplessness Physical Examination Vital signs: Vital Signs Temp Pulse Resp BP Pulse Ox 98.7 F 120 H 18 124/86 100 02/19/17 14:57 02/19/17 14:57 02/19/17 14:57 02/19/17 14:57 02/19/17 14:57 Results - Laboratory Findings CBC and BMP: 02/21/17 04:00 02/21/17 07:35 Abnormal lab findings: Abnormal Labs 02/19/17 02/19/17 02/19/17 22:40 22:40 22:43 WBC MCHC Lymphocytes % (Manual) Lymphocytes # (Manual) Sodium 133 L Potassium 3.0 L Chloride Carbon Dioxide 8 L* BUN Creatinine 0.4 L Glucose 180 H POC Glucose 181 H Calcium 7.5 L Phosphorus 1.4 L D Magnesium 1.5 L Urine WBC (Auto) U Epithel Cells (Auto) 02/19/17 02/20/17 02/20/17 23:40 00:46 02:47 WBC MCHC Lymphocytes % (Manual) Lymphocytes # (Manual) Sodium 132 L Potassium 3.0 L Chloride Carbon Dioxide 7 L* BUN Creatinine 0.4 L Glucose 204 H POC Glucose 233 H 257 H Calcium 7.6 L Phosphorus Magnesium Urine WBC (Auto) U Epithel Cells (Auto) 02/20/17 02/20/17 02/20/17 03:47 04:00 04:50 WBC MCHC Lymphocytes % (Manual) Lymphocytes # (Manual) Sodium 132 L Potassium 3.1 L Chloride Carbon Dioxide 8 L* BUN Creatinine 0.4 L Glucose 243 H POC Glucose 230 H 233 H Calcium 7.7 L Phosphorus Magnesium Urine WBC (Auto) U Epithel Cells (Auto) 02/20/17 02/20/17 02/20/17 06:08 07:18 07:55 WBC MCHC Lymphocytes % (Manual) Lymphocytes # (Manual) Sodium 131 L Potassium 3.1 L Chloride Carbon Dioxide 10 L BUN Creatinine 0.4 L Glucose 216 H POC Glucose 224 H 210 H Calcium 7.9 L Phosphorus Magnesium Urine WBC (Auto) U Epithel Cells (Auto) 02/20/17 02/20/17 02/20/17 09:20 10:01 10:56 WBC MCHC Lymphocytes % (Manual) Lymphocytes # (Manual) Sodium 129 L Potassium 2.9 L* Chloride Carbon Dioxide 10 L BUN 5 L Creatinine 0.4 L Glucose 252 H POC Glucose 239 H 227 H Calcium 7.9 L Phosphorus Magnesium Urine WBC (Auto) U Epithel Cells (Auto) 02/20/17 02/20/17 02/20/17 11:24 12:54 14:22 WBC MCHC Lymphocytes % (Manual) Lymphocytes # (Manual) Sodium 129 L Potassium 3.0 L Chloride Carbon Dioxide 11 L BUN 5 L Creatinine 0.4 L Glucose 233 H POC Glucose 231 H 223 H Calcium Phosphorus Magnesium Urine WBC (Auto) U Epithel Cells (Auto) 02/20/17 02/20/17 02/20/17 17:33 19:28 20:12 WBC MCHC Lymphocytes % (Manual) Lymphocytes # (Manual) Sodium Potassium Chloride Carbon Dioxide BUN Creatinine Glucose POC Glucose 209 H 199 H 193 H Calcium Phosphorus Magnesium Urine WBC (Auto) U Epithel Cells (Auto) 02/20/17 02/20/17 02/20/17 21:05 22:01 22:47 WBC MCHC Lymphocytes % (Manual) Lymphocytes # (Manual) Sodium 134 L Potassium 3.0 L Chloride Carbon Dioxide 11 L BUN 4 L Creatinine 0.3 L Glucose 210 H POC Glucose 207 H 209 H Calcium 8.1 L Phosphorus Magnesium Urine WBC (Auto) U Epithel Cells (Auto) 02/20/17 02/21/17 02/21/17 23:01 00:16 01:00 WBC MCHC Lymphocytes % (Manual) Lymphocytes # (Manual) Sodium Potassium Chloride Carbon Dioxide BUN Creatinine Glucose POC Glucose 214 H 195 H 187 H Calcium Phosphorus Magnesium Urine WBC (Auto) U Epithel Cells (Auto) 02/21/17 02/21/17 02/21/17 02:01 03:00 03:20 WBC MCHC Lymphocytes % (Manual) Lymphocytes # (Manual) Sodium Potassium Chloride Carbon Dioxide BUN Creatinine Glucose POC Glucose 154 H 168 H Calcium Phosphorus Magnesium Urine WBC (Auto) 35.0 H U Epithel Cells (Auto) 15.0 H 02/21/17 02/21/17 02/21/17 04:00 04:01 05:17 WBC 12.8 H MCHC 35 H Lymphocytes % (Manual) 5.0 L Lymphocytes # (Manual) 0.6 L Sodium Potassium Chloride Carbon Dioxide BUN Creatinine Glucose POC Glucose 165 H 142 H Calcium Phosphorus Magnesium Urine WBC (Auto) U Epithel Cells (Auto) 02/21/17 02/21/17 02/21/17 06:18 07:35 08:14 WBC MCHC Lymphocytes % (Manual) Lymphocytes # (Manual) Sodium 136 L Potassium Chloride 110.7 H Carbon Dioxide 15 L BUN 4 L Creatinine 0.3 L Glucose 127 H POC Glucose 120 H 129 H Calcium 8.3 L Phosphorus Magnesium Urine WBC (Auto) U Epithel Cells (Auto) 02/21/17 02/21/17 02/21/17 09:35 09:57 12:20 WBC MCHC Lymphocytes % (Manual) Lymphocytes # (Manual) Sodium Potassium Chloride Carbon Dioxide BUN Creatinine Glucose POC Glucose 169 H 148 H 140 H Calcium Phosphorus Magnesium Urine WBC (Auto) U Epithel Cells (Auto)
[2017-02-21 17:48] LABS: Anion Gap 17 mmol/L; Blood Urea Nitrogen 4 mg/dL (7-17); Calcium 8.2 mg/dL (8.4-10.2); Carbon Dioxide 14 mmol/L (22-30); Chloride 106.1 mmol/L (98-107); Glucose 123 mg/dL (65-100); Potassium 3.2 mmol/L (3.6-5.0); Sodium 134 mmol/L (137-145)
[2017-02-21] MEDS: ROCEPHIN/NS 1 GM/50 ML 1 GM/50 ML BAG IV SCH (18:03)
--- NOTE | 2017-02-22 01:40 | Consultation ---
CONSULTING PHYSICIAN: Jada Van MD REASON FOR CONSULTATION: DKA. CHIEF COMPLAINT AND HISTORY OF PRESENT ILLNESS: The patient is a 21-year-old female complaining of elevated blood pressures in the Emergency Room. She does have a history of diabetes. She complained apparently also of some cough, subjective fevers, sore throat, initially was aching all over. She stated there was upper respiratory tract syndrome going around in the house. She went to an outpatient clinic to get the medications, but was found to have blood sugars greater than 400. She came to the Emergency Room, was diagnosed with diabetic ketoacidosis and admitted to the Intensive Care Unit for IV insulin administration where I stopped by to see her. She was initially noncooperative, then later started to answer questions. She stated that she just needed something for pain. She denied any real nausea, vomiting, or overt aspiration. Denied any gross or streaky hemoptysis. That really is as much of the history of presentation as I have. She describes herself as a never smoker. PAST MEDICAL HISTORY: Again, diabetes. PAST SURGICAL HISTORY: Denies. MEDICATIONS: She was on at the time I stopped by to see her, according to the medication administration record, included the following: She was on Tylenol 650 mg p.o. q.6h. p.r.n. fever greater than 101, benzocaine Cepacol X 1 tablet q.12h. p.r.n. sore throat, p.r.n. Dulcolax, Rocephin 1 gram IV daily, Lovenox 40 mg subcutaneous daily, Dilaudid 0.5 mg IV q.3h. p.r.n. She was on IV insulin drip at that time, I think was getting 4 units per hour, Zofran 4 mg IV q.3h. p.r.n. nausea and vomiting, p.r.n. Ambien. ALLERGIES: No known drug allergies. DIET: Petite lady, denies any significant weight loss or gain in the preceding few weeks to months. FAMILY AND SOCIAL HISTORY: Lives in the community. Denies alcohol, tobacco, or illicit drug use or abuse. REVIEW OF SYSTEMS: No loss of consciousness. No new onset seizures. No new onset focal weakness. No gross hematochezia or melena. No gross hematuria or dysuria. No hematemesis. No hemoptysis. She had sore throat. No palpitations. Complete review of systems obtained. Pertinent positives and/or negatives as in body of history above, otherwise noncontributory. PHYSICAL EXAMINATION: VITAL SIGNS: At presentation, she was afebrile, temperature 98.7, pulse was 120, respiratory rate was 18, blood pressure was 124/86, oxygen sats 95%, inspired oxygen concentration was not recorded. HEAD, EYES, EARS, NOSE, AND THROAT: Pupils are equal, round, about 3 mm, reactive to light. Extraocular muscle movements were normal. Grossly, no palpable lymph nodes in the supraclavicular or submandibular lymph node chains. She does complain of some left submandibular tenderness. LUNGS: Auscultation of both lung deras unremarkable. Lungs are clear bilaterally. HEART: Heart sounds 1 and 2 are heard. They were regular in rate and rhythm at the time of my evaluation. ABDOMEN: Soft, full, bowel sounds are positive. Mild epigastric tenderness. EXTREMITIES: Without overt digital clubbing, cyanosis, or pedal edema. NEUROLOGIC: The exam was grossly nonfocal. LABORATORY DATA: From my review are as follows: White cell count 16,000, hemoglobin 15.2, hematocrit 46.9, and platelet count of 212. Venous blood gas was 7.03. Serum sodium was 131, potassium 3.6, chloride 94, bicarbonate 7, BUN 10, creatinine 0.7, glucose was 352. Urinalysis negative for nitrites and leukocyte esterase. It did show blood. Urine ketones were reported as elevated. I do not have any radiographic studies for review. Blood cultures are no growth to date. ASSESSMENT AND PLAN: We have a young lady who apparently was not taking any medications , but seems to have an infection also on top of this, in with diabetic ketoacidosis in the setting of a possible infection going on, there is certainly also may be an element of an aspiration pneumonia, although the clinical exam does not suggest that. She is appropriately admitted for IV insulin therapy that will be continued per DKA protocol. We will continue the empiric Rocephin for now. I will get a chest x-ray. If she does begin to have upper respiratory tract tract type symptoms. If she is coughing up any phlegm, I will send that for cultures and sensitivities and we may need to add possible coverage for atypical pneumonias. For now, she is appropriately on DVT prophylaxis. I will put her on GI prophylaxis. Flu and pneumonia vaccination will be per protocol. I should mention she had a T-max of 101.6 yesterday and we will continue the IV Rocephin. JOB# [id number] JESSI/NTS
[2017-02-22] MEDS ORDERED: TYLENOL ONE (02:05)
[2017-02-22 04:55] LABS: Anion Gap 15 mmol/L; BUN/Creatinine Ratio 16.66; Blood Urea Nitrogen 5 mg/dL (7-17); Carbon Dioxide 17 mmol/L (22-30); Chloride 106.9 mmol/L (98-107); Glucose 179 mg/dL (65-100); Potassium 3.2 mmol/L (3.6-5.0); Sodium 136 mmol/L (137-145)
--- NOTE | 2017-02-22 08:55 | XRay Report ---
AP chest x-ray. Findings: Patchy air space disease is seen in both lower lobes. The upper lobes are clear. The heart and pulmonary vessels are normal. Impression: Bibasilar infiltrates, possibly due to aspiration.
[2017-02-22] MEDS: LOVENOX SUB-Q SCH (09:44)
[2017-02-22] MEDS: K-DUR PO SCH ×3 (09:44→13:39)
[2017-02-22] MEDS: TYLENOL FEEDTUBE PRN ×2 (11:11→17:07)
[2017-02-22] MEDS: CEPACOL X STRENGTH MM PRN ×3 (11:12→21:11)
--- NOTE | 2017-02-22 11:35 | Progress Note ---
Assessment and Plan Assessment and plan: 1. Sepsis. Patient least criteria given the tachycardia, tachypnea, leukocytosis and diagnosis of right otitis media and UTI. Continue sepsis pathway. We will follow-up blood cultures and trend lactic acid levels. Continue IV antibiotic. 2. Right otitis media. Continue antibiotics as noted above. 3. UTI. U/A reveals 35 WBCs. Follow-up urine cultures. 4. DKA. Patient has been transitioned to long-acting insulin. Check hemoglobin A1c. Patient will be transferred to the floor. 5. Hypokalemia. Replete potassium. 6. DVT prophylaxis. Continue Lovenox. History Interval history: This is a 21-year-old female presents emergency Department with a complaint of elevated blood sugar, cough, subjective fevers and sore throat. Patient was admitted with a diagnosis of DKA. No new issues overnight. Hospitalist Physical - Constitutional Vitals: Temp Pulse Resp BP Pulse Ox 98.6 F 89 20 81/49 98 02/22/17 08:00 02/22/17 10:11 02/22/17 10:11 02/22/17 10:11 02/22/17 10:11 General appearance: Present: no acute distress, well-nourished - EENT Eyes: Present: PERRL, EOM intact ENT: hearing intact, clear oral mucosa, dentition normal - Neck Neck: Present: supple, normal ROM - Respiratory Respiratory effort: normal Respiratory: bilateral: CTA - Cardiovascular Rhythm: regular Heart Sounds: Present: S1 & S2. Absent: gallop, rub - Extremities Extremities: no ischemia, No edema, Full ROM - Abdominal General gastrointestinal: soft, non-tender, non-distended, normal bowel sounds - Integumentary Integumentary: Present: clear, warm, dry - Neurologic Neurologic: CNII-XII intact, moves all extremities Results - Labs CBC & Chem 7: 02/21/17 04:00 02/22/17 04:09 Labs: Laboratory Last Values WBC 12.8 K/mm3 (4.5-11.0) H 02/21/17 04:00 RBC 4.20 M/mm3 (3.65-5.03) 02/21/17 04:00 Hgb 11.8 gm/dl (10.1-14.3) D 02/21/17 04:00 Hct 34.1 % (30.3-42.9) D 02/21/17 04:00 MCV 81 fl (79-97) D 02/21/17 04:00 MCH 28 pg (28-32) 02/21/17 04:00 MCHC 35 % (30-34) H 02/21/17 04:00 RDW 13.4 % (13.2-15.2) 02/21/17 04:00 Plt Count 175 K/mm3 (140-440) 02/21/17 04:00 Lymph % (Auto) 8.9 % (13.4-35.0) L 02/19/17 15:33 Wood % (Auto) 7.8 % (0.0-7.3) H 02/19/17 15:33 Eos % (Auto) 0.0 % (0.0-4.3) 02/19/17 15:33 Baso % (Auto) 0.2 % (0.0-1.8) 02/19/17 15:33 Lymph # 1.4 K/mm3 (1.2-5.4) 02/19/17 15:33 Wood # 1.2 K/mm3 (0.0-0.8) H 02/19/17 15:33 Eos # 0.0 K/mm3 (0.0-0.4) 02/19/17 15:33 Baso # 0.0 K/mm3 (0.0-0.1) 02/19/17 15:33 Add Manual Diff Complete 02/21/17 04:00 Total Counted 100 02/21/17 04:00 Seg Neutrophils % 83.1 % (40.0-70.0) H 02/19/17 15:33 Seg Neuts % (Manual) 56.0 % (40.0-70.0) 02/21/17 04:00 Band Neutrophils % 30.0 % 02/21/17 04:00 Lymphocytes % (Manual) 5.0 % (13.4-35.0) L 02/21/17 04:00 Reactive Lymphs % (Man) 0 % 02/21/17 04:00 Monocytes % (Manual) 5.0 % (0.0-7.3) 02/21/17 04:00 Eosinophils % (Manual) 0 % (0.0-4.3) 02/21/17 04:00 Metamyelocytes % 3.0 % 02/21/17 04:00 Myelocytes % 1.0 % 02/21/17 04:00 Promyelocytes % 0 % 02/21/17 04:00 Blast Cells % 0 % 02/21/17 04:00 Nucleated RBC % Not Reportable 02/21/17 04:00 Seg Neutrophils # 13.3 K/mm3 (1.8-7.7) H 02/19/17 15:33 Seg Neutrophils # Man 7.2 K/mm3 (1.8-7.7) 02/21/17 04:00 Band Neutrophils # 3.8 K/mm3 02/21/17 04:00 Lymphocytes # (Manual) 0.6 K/mm3 (1.2-5.4) L 02/21/17 04:00 Abs React Lymphs (Man) 0.0 K/mm3 02/21/17 04:00 Monocytes # (Manual) 0.6 K/mm3 (0.0-0.8) 02/21/17 04:00 Eosinophils # (Manual) 0.0 K/mm3 (0.0-0.4) 02/21/17 04:00 Basophils # (Manual) 0.0 K/mm3 (0.0-0.1) 02/21/17 04:00 Metamyelocytes # 0.4 K/mm3 02/21/17 04:00 Myelocytes # 0.1 K/mm3 02/21/17 04:00 Promyelocytes # 0.0 K/mm3 02/21/17 04:00 Blast Cells # 0.0 K/mm3 02/21/17 04:00 WBC Morphology Not Reportable 02/21/17 04:00 Hypersegmented Neuts Not Reportable 02/21/17 04:00 Hyposegmented Neuts Not Reportable 02/21/17 04:00 Hypogranular Neuts Not Reportable 02/21/17 04:00 Smudge Cells Not Reportable 02/21/17 04:00 Toxic Granulation Not Reportable 02/21/17 04:00 Toxic Vacuolation Not Reportable 02/21/17 04:00 Dohle Bodies Not Reportable 02/21/17 04:00 Pelger-Huet Anomaly Not Reportable 02/21/17 04:00 Ramesh Rods Not Reportable 02/21/17 04:00 Platelet Estimate Not Reportable 02/21/17 04:00 Clumped Platelets Not Reportable 02/21/17 04:00 Plt Clumps, EDTA Not Reportable 02/21/17 04:00 Large Platelets Not Reportable 02/21/17 04:00 Giant Platelets Not Reportable 02/21/17 04:00 Platelet Satelliting Not Reportable 02/21/17 04:00 Plt Morphology Comment Not Reportable 02/21/17 04:00 RBC Morphology Not Reportable 02/21/17 04:00 Dimorphic RBCs Not Reportable 02/21/17 04:00 Polychromasia Not Reportable 02/21/17 04:00 Hypochromasia Not Reportable 02/21/17 04:00 Poikilocytosis Not Reportable 02/21/17 04:00 Anisocytosis 1+ 02/21/17 04:00 Microcytosis Not Reportable 02/21/17 04:00 Macrocytosis Not Reportable 02/21/17 04:00 Spherocytes Not Reportable 02/21/17 04:00 Pappenheimer Bodies Not Reportable 02/21/17 04:00 Sickle Cells Not Reportable 02/21/17 04:00 Target Cells Not Reportable 02/21/17 04:00 Tear Drop Cells Not Reportable 02/21/17 04:00 Ovalocytes Not Reportable 02/21/17 04:00 Helmet Cells Not Reportable 02/21/17 04:00 Esteves-Robards Bodies Not Reportable 02/21/17 04:00 Maize Rings Not Reportable 02/21/17 04:00 Amanda Cells Not Reportable 02/21/17 04:00 Bite Cells Not Reportable 02/21/17 04:00 Crenated Cell Not Reportable 02/21/17 04:00 Elliptocytes Not Reportable 02/21/17 04:00 Acanthocytes (Spur) Not Reportable 02/21/17 04:00 Rouleaux Not Reportable 02/21/17 04:00 Hemoglobin C Crystals Not Reportable 02/21/17 04:00 Schistocytes Not Reportable 02/21/17 04:00 Malaria parasites Not Reportable 02/21/17 04:00 Syed Bodies Not Reportable 02/21/17 04:00 Hem Pathologist Commnt No 02/21/17 04:00 VBG pH 7.029 (7.320-7.420) L* 02/19/17 15:33 Sodium 136 mmol/L (137-145) L 02/22/17 04:09 Potassium 3.2 mmol/L (3.6-5.0) L 02/22/17 04:09 Chloride 106.9 mmol/L (98-107) 02/22/17 04:09 Carbon Dioxide 17 mmol/L (22-30) L 02/22/17 04:09 Anion Gap 15 mmol/L 02/22/17 04:09 BUN 5 mg/dL (7-17) L 02/22/17 04:09 Creatinine 0.3 mg/dL (0.7-1.2) L 02/22/17 04:09 Estimated GFR > 60 ml/min 02/22/17 04:09 BUN/Creatinine Ratio 16.66 % 02/22/17 04:09 Glucose 179 mg/dL (65-100) H 02/22/17 04:09 POC Glucose 259 (70-105) H 02/21/17 22:21 Hemoglobin A1c 15.5 % (4-6) H 02/21/17 04:00 Lactic Acid 1.0 mmol/L (0.7-2.0) 02/20/17 14:41 Calcium 8.0 mg/dL (8.4-10.2) L 02/22/17 04:09 Phosphorus 1.4 mg/dL (2.5-4.5) L D 02/19/17 22:40 Magnesium 1.5 mg/dL (1.7-2.3) L 02/19/17 22:40 Urine Color Zee (Yellow) 02/21/17 03:20 Urine Turbidity Clear (Clear) 02/21/17 03:20 Urine pH 6.0 (5.0-7.0) 02/21/17 03:20 Ur Specific [place] 1.020 (1.003-1.030) 02/21/17 03:20 Urine Protein 100 mg/dl mg/dL (Negative) 02/21/17 03:20 Urine Glucose (UA) >=500 mg/dL (Negative) 02/21/17 03:20 Urine Ketones 80 mg/dL (Negative) 02/21/17 03:20 Urine Blood Lg (Negative) 02/21/17 03:20 Urine Nitrite Neg (Negative) 02/21/17 03:20 Urine Bilirubin Neg (Negative) 02/21/17 03:20 Urine Urobilinogen < 2.0 mg/dL (<2.0) 02/21/17 03:20 Ur Leukocyte Esterase Neg (Negative) 02/21/17 03:20 Urine WBC (Auto) 35.0 /HPF (0.0-6.0) H 02/21/17 03:20 Urine RBC (Auto) 20.0 /HPF (0.0-6.0) 02/21/17 03:20 U Epithel Cells (Auto) 15.0 /HPF (0-13.0) H 02/21/17 03:20 Urine Bacteria (Auto) 1+ /HPF (Negative) 02/21/17 03:20 Hyaline Casts 3 /LPF 02/21/17 03:20 Granular Casts 2 /LPF 02/21/17 03:20 Urine Mucus Few /HPF 02/21/17 03:20 Urine HCG, Qual Negative (Negative) 02/19/17 15:00 Ketones mmol/L (-0.28) 02/19/17 15:33
--- NOTE | 2017-02-22 14:46 | Progress Note ---
Assessment and Plan - Patient Problems (1) DKA (diabetic ketoacidoses) Current Visit: Yes Status: Acute Qualifiers: Diabetes mellitus type: other specified (including DACIA) Diabetes mellitus complication detail: without coma Qualified Code(s): E13.10 - Other specified diabetes mellitus with ketoacidosis without coma Plan to address problem: - resolved - to transfer out of floor Subjective Date of service: 02/22/17 Principal diagnosis: DKA Interval history: Seen and examined at bedside; 24 hour events reviewed; nursing and respiratory care staff consulted; no adverse overnight events reported to me; doing better; gap closed and no new issues Objective Vital Signs - 12hr 02/22/17 02/22/17 02/22/17 02:51 03:00 03:11 Temperature Pulse Rate 94 H 92 H 98 H Respiratory 21 20 20 Rate Blood Pressure 90/58 79/39 79/39 O2 Sat by Pulse 97 97 96 Oximetry 02/22/17 02/22/17 02/22/17 03:21 03:31 03:41 Temperature Pulse Rate 96 H 96 H 95 H Respiratory 17 16 16 Rate Blood Pressure 79/39 79/39 79/39 O2 Sat by Pulse 97 97 97 Oximetry 02/22/17 02/22/17 02/22/17 03:51 04:00 04:11 Temperature Pulse Rate 93 H 90 112 H Respiratory 18 21 30 H Rate Blood Pressure 79/39 89/51 85/51 O2 Sat by Pulse 97 96 98 Oximetry 02/22/17 02/22/17 02/22/17 04:21 04:31 04:41 Temperature Pulse Rate 100 H 92 H 88 Respiratory 23 18 18 Rate Blood Pressure 85/51 85/51 85/51 O2 Sat by Pulse 98 98 98 Oximetry 02/22/17 02/22/17 02/22/17 04:51 05:00 05:11 Temperature Pulse Rate 88 87 92 H Respiratory 17 17 17 Rate Blood Pressure 85/51 90/57 90/57 O2 Sat by Pulse 98 98 97 Oximetry 02/22/17 02/22/17 02/22/17 05:21 05:31 05:41 Temperature Pulse Rate 91 H 93 H 89 Respiratory 16 16 18 Rate Blood Pressure 90/57 90/57 90/57 O2 Sat by Pulse 98 97 98 Oximetry 02/22/17 02/22/17 02/22/17 05:51 06:01 06:10 Temperature Pulse Rate 107 H 103 H 91 H Respiratory 27 H 23 22 Rate Blood Pressure 90/57 97/57 97/57 O2 Sat by Pulse 99 99 97 Oximetry 02/22/17 02/22/17 02/22/17 06:20 06:31 06:41 Temperature Pulse Rate 89 84 88 Respiratory 21 17 19 Rate Blood Pressure 97/57 97/57 97/57 O2 Sat by Pulse 97 99 99 Oximetry 02/22/17 02/22/17 02/22/17 06:51 07:00 07:11 Temperature Pulse Rate 89 86 101 H Respiratory 18 21 24 Rate Blood Pressure 97/57 90/59 90/59 O2 Sat by Pulse 99 99 98 Oximetry 02/22/17 02/22/17 02/22/17 07:21 07:31 07:41 Temperature Pulse Rate 98 H 98 H 93 H Respiratory 23 18 26 H Rate Blood Pressure 90/59 90/59 90/59 O2 Sat by Pulse 97 98 98 Oximetry 02/22/17 02/22/17 02/22/17 07:51 08:00 08:11 Temperature 98.6 F Pulse Rate 104 H 90 92 H Respiratory 28 H 25 H 25 H Rate Blood Pressure 90/59 88/57 88/57 O2 Sat by Pulse 100 99 98 Oximetry 02/22/17 02/22/17 02/22/17 08:21 08:31 08:41 Temperature Pulse Rate 101 H 101 H 90 Respiratory 22 25 H 25 H Rate Blood Pressure 88/57 88/57 88/57 O2 Sat by Pulse 98 100 97 Oximetry 02/22/17 02/22/17 02/22/17 08:51 09:00 09:11 Temperature Pulse Rate 92 H 89 90 Respiratory 21 21 21 Rate Blood Pressure 88/57 79/46 79/46 O2 Sat by Pulse 97 98 98 Oximetry 02/22/17 02/22/17 02/22/17 09:21 09:31 09:41 Temperature Pulse Rate 90 104 H 92 H Respiratory 22 22 22 Rate Blood Pressure 79/46 79/46 79/46 O2 Sat by Pulse 98 97 98 Oximetry 02/22/17 02/22/17 02/22/17 09:51 10:00 10:11 Temperature Pulse Rate 90 90 89 Respiratory 22 21 20 Rate Blood Pressure 79/46 81/49 81/49 O2 Sat by Pulse 97 98 98 Oximetry 02/22/17 02/22/17 02/22/17 10:21 10:31 10:41 Temperature Pulse Rate 94 H 91 H 92 H Respiratory 20 19 23 Rate Blood Pressure 81/49 81/49 81/49 O2 Sat by Pulse 98 98 98 Oximetry 02/22/17 02/22/17 02/22/17 10:51 11:00 11:11 Temperature Pulse Rate 106 H 101 H 100 H Respiratory 20 25 H 17 Rate Blood Pressure 81/49 102/67 102/67 O2 Sat by Pulse 99 97 97 Oximetry 02/22/17 02/22/17 02/22/17 11:21 11:31 11:41 Temperature Pulse Rate 94 H 94 H 98 H Respiratory 21 23 22 Rate Blood Pressure 102/67 102/67 102/67 O2 Sat by Pulse 97 98 98 Oximetry 02/22/17 02/22/17 02/22/17 11:51 12:00 12:11 Temperature 98.6 F Pulse Rate 95 H 92 H 89 Respiratory 25 H 23 23 Rate Blood Pressure 102/67 92/58 92/58 O2 Sat by Pulse 98 98 98 Oximetry 02/22/17 02/22/17 02/22/17 12:21 12:31 12:41 Temperature Pulse Rate 88 87 87 Respiratory 22 19 20 Rate Blood Pressure 92/58 92/58 92/58 O2 Sat by Pulse 98 98 99 Oximetry 02/22/17 02/22/17 02/22/17 12:51 13:00 13:11 Temperature Pulse Rate 90 89 91 H Respiratory 19 19 18 Rate Blood Pressure 92/58 95/67 95/67 O2 Sat by Pulse 98 98 99 Oximetry 02/22/17 02/22/17 02/22/17 13:21 13:31 13:41 Temperature Pulse Rate 88 100 H 95 H Respiratory 21 18 20 Rate Blood Pressure 95/67 95/67 95/67 O2 Sat by Pulse 97 98 99 Oximetry 02/22/17 02/22/17 02/22/17 13:51 14:00 14:11 Temperature Pulse Rate 92 H 95 H 92 H Respiratory 26 H 23 25 H Rate Blood Pressure 95/67 92/57 95/67 O2 Sat by Pulse 99 99 98 Oximetry Constitutional: no acute distress Eyes: non-icteric ENT: oropharynx moist Neck: supple, no lymphadenopathy Effort: normal Ascultation: Bilateral: clear Cardiovascular: regular rate and rhythm Gastrointestinal: normoactive bowel sounds, soft, non-tender, non-distended Integumentary: normal Extremities: no cyanosis, no edema, pulses normal, no ischemia or petechiae Neurologic: normal mental status, non-focal exam, pupils equal and round, motor strength normal and Psychiatric: mood appropriate, affect normal CBC and BMP: 02/21/17 04:00 02/23/17 08:18 Abnormal lab findings: Abnormal Labs 02/19/17 02/19/17 02/19/17 22:40 22:40 22:43 WBC MCHC Lymphocytes % (Manual) Lymphocytes # (Manual) Sodium 133 L Potassium 3.0 L Chloride Carbon Dioxide 8 L* BUN Creatinine 0.4 L Glucose 180 H POC Glucose 181 H Hemoglobin A1c Calcium 7.5 L Phosphorus 1.4 L D Magnesium 1.5 L Urine WBC (Auto) U Epithel Cells (Auto) 02/19/17 02/20/17 02/20/17 23:40 00:46 02:47 WBC MCHC Lymphocytes % (Manual) Lymphocytes # (Manual) Sodium 132 L Potassium 3.0 L Chloride Carbon Dioxide 7 L* BUN Creatinine 0.4 L Glucose 204 H POC Glucose 233 H 257 H Hemoglobin A1c Calcium 7.6 L Phosphorus Magnesium Urine WBC (Auto) U Epithel Cells (Auto) 02/20/17 02/20/17 02/20/17 03:47 04:00 04:50 WBC MCHC Lymphocytes % (Manual) Lymphocytes # (Manual) Sodium 132 L Potassium 3.1 L Chloride Carbon Dioxide 8 L* BUN Creatinine 0.4 L Glucose 243 H POC Glucose 230 H 233 H Hemoglobin A1c Calcium 7.7 L Phosphorus Magnesium Urine WBC (Auto) U Epithel Cells (Auto) 02/20/17 02/20/17 02/20/17 06:08 07:18 07:55 WBC MCHC Lymphocytes % (Manual) Lymphocytes # (Manual) Sodium 131 L Potassium 3.1 L Chloride Carbon Dioxide 10 L BUN Creatinine 0.4 L Glucose 216 H POC Glucose 224 H 210 H Hemoglobin A1c Calcium 7.9 L Phosphorus Magnesium Urine WBC (Auto) U Epithel Cells (Auto) 02/20/17 02/20/17 02/20/17 09:20 10:01 10:56 WBC MCHC Lymphocytes % (Manual) Lymphocytes # (Manual) Sodium 129 L Potassium 2.9 L* Chloride Carbon Dioxide 10 L BUN 5 L Creatinine 0.4 L Glucose 252 H POC Glucose 239 H 227 H Hemoglobin A1c Calcium 7.9 L Phosphorus Magnesium Urine WBC (Auto) U Epithel Cells (Auto) 02/20/17 02/20/17 02/20/17 11:24 12:54 14:22 WBC MCHC Lymphocytes % (Manual) Lymphocytes # (Manual) Sodium 129 L Potassium 3.0 L Chloride Carbon Dioxide 11 L BUN 5 L Creatinine 0.4 L Glucose 233 H POC Glucose 231 H 223 H Hemoglobin A1c Calcium Phosphorus Magnesium Urine WBC (Auto) U Epithel Cells (Auto) 02/20/17 02/20/17 02/20/17 17:33 19:28 20:12 WBC MCHC Lymphocytes % (Manual) Lymphocytes # (Manual) Sodium Potassium Chloride Carbon Dioxide BUN Creatinine Glucose POC Glucose 209 H 199 H 193 H Hemoglobin A1c Calcium Phosphorus Magnesium Urine WBC (Auto) U Epithel Cells (Auto) 02/20/17 02/20/17 02/20/17 21:05 22:01 22:47 WBC MCHC Lymphocytes % (Manual) Lymphocytes # (Manual) Sodium 134 L Potassium 3.0 L Chloride Carbon Dioxide 11 L BUN 4 L Creatinine 0.3 L Glucose 210 H POC Glucose 207 H 209 H Hemoglobin A1c Calcium 8.1 L Phosphorus Magnesium Urine WBC (Auto) U Epithel Cells (Auto) 02/20/17 02/21/17 02/21/17 23:01 00:16 01:00 WBC MCHC Lymphocytes % (Manual) Lymphocytes # (Manual) Sodium Potassium Chloride Carbon Dioxide BUN Creatinine Glucose POC Glucose 214 H 195 H 187 H Hemoglobin A1c Calcium Phosphorus Magnesium Urine WBC (Auto) U Epithel Cells (Auto) 02/21/17 02/21/17 02/21/17 02:01 03:00 03:20 WBC MCHC Lymphocytes % (Manual) Lymphocytes # (Manual) Sodium Potassium Chloride Carbon Dioxide BUN Creatinine Glucose POC Glucose 154 H 168 H Hemoglobin A1c Calcium Phosphorus Magnesium Urine WBC (Auto) 35.0 H U Epithel Cells (Auto) 15.0 H 02/21/17 02/21/17 02/21/17 04:00 04:00 04:01 WBC 12.8 H MCHC 35 H Lymphocytes % (Manual) 5.0 L Lymphocytes # (Manual) 0.6 L Sodium Potassium Chloride Carbon Dioxide BUN Creatinine Glucose POC Glucose 165 H Hemoglobin A1c 15.5 H Calcium Phosphorus Magnesium Urine WBC (Auto) U Epithel Cells (Auto) 02/21/17 02/21/17 02/21/17 05:17 06:18 07:35 WBC MCHC Lymphocytes % (Manual) Lymphocytes # (Manual) Sodium 136 L Potassium Chloride 110.7 H Carbon Dioxide 15 L BUN 4 L Creatinine 0.3 L Glucose 127 H POC Glucose 142 H 120 H Hemoglobin A1c Calcium 8.3 L Phosphorus Magnesium Urine WBC (Auto) U Epithel Cells (Auto) 02/21/17 02/21/17 02/21/17 08:14 09:35 09:57 WBC MCHC Lymphocytes % (Manual) Lymphocytes # (Manual) Sodium Potassium Chloride Carbon Dioxide BUN Creatinine Glucose POC Glucose 129 H 169 H 148 H Hemoglobin A1c Calcium Phosphorus Magnesium Urine WBC (Auto) U Epithel Cells (Auto) 02/21/17 02/21/17 02/21/17 11:10 12:20 17:20 WBC MCHC Lymphocytes % (Manual) Lymphocytes # (Manual) Sodium 134 L Potassium 3.2 L Chloride Carbon Dioxide 14 L BUN 4 L Creatinine 0.2 L Glucose 123 H POC Glucose 136 H 140 H Hemoglobin A1c Calcium 8.2 L Phosphorus Magnesium Urine WBC (Auto) U Epithel Cells (Auto) 02/21/17 02/22/17 22:21 04:09 WBC MCHC Lymphocytes % (Manual) Lymphocytes # (Manual) Sodium 136 L Potassium 3.2 L Chloride Carbon Dioxide 17 L BUN 5 L Creatinine 0.3 L Glucose 179 H POC Glucose 259 H Hemoglobin A1c Calcium 8.0 L Phosphorus Magnesium Urine WBC (Auto) U Epithel Cells (Auto)
[2017-02-22] MEDS: ROCEPHIN/NS 1 GM/50 ML 1 GM/50 ML BAG IV SCH (17:09)
[2017-02-22] MEDS: DILAUDID IV PRN (21:10)
[2017-02-23] MEDS: DILAUDID IV PRN (02:23)
[2017-02-23] MEDS: TYLENOL FEEDTUBE PRN (05:57)
--- NOTE | 2017-02-23 08:09 | Discharge Summary ---
Providers - Providers Date of Admission: 02/19/17 22:17 Date of discharge: 02/23/17 Attending physician: RAJAN CHOWDHURY 02/19/17 22:23 Consult to Physician [CONS] Routine Consulting Provider: CONCHITA BUTT Reason For Exam: DKA Place consult to:: CONCHITA BUTT Notified:: Y Phone number called:: Was contact made?: No If yes, spoke with:: DR. Clark Time called:: 07:00 Comment:: LEFT MSG/VOICE MAIL 02/20/17 12:06 Consult to Dietitian/Nutrition [CONS] Routine Physician Instructions: Reason For Exam: Reason for Consult: Nutrition Recommendations Reason for Consult: Diet education Primary care physician: [employer] Hospitalization Reason for admission: DKA Condition: Stable Hospital course: This is a 21-year-old female who was admitted through the [facility] with DKA, sepsis, right otitis externa and UTI. Patient was initially treated with IV insulin and aggressive IV fluid hydration. Patient was transitioned to a long-acting insulin. Patient with no history of diabetes other than gestational diabetes. Patient received diabetic diet education. Patient was treated with IV antibiotics and blood cultures found to be negative. Blood glucose stabilized and patient was felt to be stable for discharge. Dedicated discharge time 31 minutes. Disposition: DISCHARGED TO HOME OR SELFCARE Time spent for discharge: 31 - Discharge Diagnoses (1) DKA (diabetic ketoacidoses) Status: Acute Qualifiers: Diabetes mellitus type: other specified (including DACIA) Diabetes mellitus complication detail: without coma Qualified Code(s): E13.10 - Other specified diabetes mellitus with ketoacidosis without coma (2) Sepsis Status: Acute Qualifiers: Sepsis type: S (3) UTI (urinary tract infection) Status: Acute Qualifiers: Urinary tract infection type: U Hematuria presence: H Indwelling urinary catheter type: I Encounter type: E (4) Otitis externa Status: Acute Qualifiers: Otitis externa type: O Noninfectious otitis externa type: N Laterality: L Chronicity: C Core Measure Documentation - Palliative Care Palliative Care/ Comfort Measures: Not Applicable - Core Measures Any of the following diagnoses?: none Exam - Constitutional Vitals: Temp Pulse Resp BP Pulse Ox 99.1 F 90 16 93/54 97 02/22/17 23:00 02/22/17 23:00 02/23/17 05:57 02/22/17 23:00 02/22/17 23:00 General appearance: Present: no acute distress, well-nourished - EENT Eyes: Present: PERRL ENT: hearing intact, clear oral mucosa - Neck Neck: Present: supple, normal ROM - Respiratory Respiratory effort: normal Respiratory: bilateral: CTA - Cardiovascular Heart Sounds: Present: S1 & S2. Absent: rub, click - Extremities Extremities: pulses symmetrical, No edema Peripheral Pulses: within normal limits - Abdominal General gastrointestinal: Present: soft, non-tender, non-distended, normal bowel sounds Female genitourinary: Present: normal - Integumentary Integumentary: Present: clear, warm, dry - Musculoskeletal Musculoskeletal: gait normal, strength equal bilaterally - Psychiatric Psychiatric: appropriate mood/affect, intact judgment & insight - Neurologic Neurologic: CNII-XII intact, moves all extremities Plan Activity: no restrictions Weight Bearing Status: Full Weight Bearing Diet: diabetic Special Instructions: record blood sugar diary Follow up with: PRIMARY CARE, [Primary Care Provider] - 3-5 Days Prescriptions: Insulin NPH/Regular [NovoLIN 70/30] 20 unit SUB-Q BIDDIAB #30 units
[2017-02-23 08:38] VITALS: BP 99/63
[2017-02-23 09:12] LABS: Anion Gap 17 mmol/L; BUN/Creatinine Ratio 23.33; Blood Urea Nitrogen 7 mg/dL (7-17); Calcium 8.3 mg/dL (8.4-10.2); Carbon Dioxide 19 mmol/L (22-30); Chloride 104.5 mmol/L (98-107); Glucose 241 mg/dL (65-100); Potassium 3.8 mmol/L (3.6-5.0); Sodium 137 mmol/L (137-145)
[2017-02-23] MEDS: LOVENOX SUB-Q SCH (10:12)
== END 2017-02-23 12:44 | disposition home or self-care (01) | DRG 871 ==
LOC: ED 14:15 → CC1 22:17 → 3A 02-22 18:22
PROVIDERS: ADMIT Internal Medicine; ATTEND Hospitalist
PROC: 3E0234Z Introduction of Serum, Toxoid and Vaccine into Muscle, Percutaneous Approach (ICD-10-PCS; principal; 2017-02-21)
DX: A41.9 Sepsis, unspecified organism (principal); E13.10 Other specified diabetes mellitus with ketoacidosis without coma; N39.0 Urinary tract infection, site not specified; H66.91 Otitis media, unspecified, right ear; E87.6 Hypokalemia; Z23 Encounter for immunization; E86.0 Dehydration; Z91.19 Patient's noncompliance with other medical treatment and regimen; J02.9 Acute pharyngitis, unspecified
CPT/HCPCS: 36415; 71010; 80048; 81001; 81025; 82010; 82140; 82805; 82962; 83036; 83735; 84100; 85007; 85025; 87040; 87116; 87400; 87430; 90732; 96361; 96374; 96375; 96376; J0696; J1170; J1650; J1815; J2405; J3480; J7030

== ENCOUNTER 2019-06-22 14:42 | Outpatient (CLI) | payer OTHER ==
[2019-06-22 15:01] VITALS: BP 112/71
--- NOTE | 2019-06-22 16:59 | Ultrasound Report ---
ULTRASOUND BIOPHYSICAL PROFILE INDICATION / CLINICAL INFORMATION: well being. COMPARISON: None available. FINDINGS: BREATHING MOVEMENT = 2 GROSS BODY MOVEMENT = 2 TONE = 2 QUALITATIVE AMNIOTIC FLUID VOLUME = 2 TOTAL BIOPHYSICAL SCORE = 07/06 AMNIOTIC FLUID INDEX (cm) = 11 PRESENTATION: Cephalic. HEART RATE (beats per minute): 140 IMPRESSION: 1. biophysical profile = 07/06 Signer Name: John Valdez MD Signed: 06/22/2019 4:55 PM Workstation Name: [employer]
== END 2019-06-22 16:46 | disposition home or self-care (01) ==
LOC: TRG 14:42
PROVIDERS: ATTEND Obstetrics & Gynecology
DX: O47.1 False labor at or after 37 completed weeks of gestation (principal); Z3A.39 39 weeks gestation of pregnancy
CPT/HCPCS: 59025; 76815; 76819

== ENCOUNTER 2019-06-27 09:18 | Inpatient (IN) | payer OTHER, SELFPAY ==
[2019-06-27] MEDS ORDERED: REGLAN IV ONE (09:37)
[2019-06-27] MEDS ORDERED: BICITRA PO ONE (09:37)
[2019-06-27] MEDS ORDERED: PEPCID IV ONE (09:37)
--- NOTE | 2019-06-27 09:55 | History and Physical Report ---
History of Present Illness Date of examination: 06/27/19 Date of admission: 06/27/19 09:18 Chief complaint: SIUP at 39 weeks gestation not in labor. malpresentation. History of present illness: Patient is a 23 year old , LMP, EDC 06/30/19 at 39 weeks and 4 days gestation who was admitted for primary C/section due to breech presentation. She denies any contractions, fluid leakage or bleeding. She reports good movement. She receives care at [facility]. She has pre-gestational type-2 diabetes and has been on insulin. She has hepatitis C infection and has been asymptomatic. Past History Past Medical History: no pertinent history Past Surgical History: section Family/Genetic History: none Social history: no significant social history - Obstetrical History Expected Date of Delivery: 06/30/19 Actual Gestation: 39 Week(s) 4 Day(s) : 3 Para: 1 Medications and Allergies Allergies Allergy/AdvReac Type Severity Reaction Status Date / Time No Known Allergies Allergy Verified 06/27/19 09:42 Home Medications Medication Instructions Recorded Confirmed Last Taken Type Insulin NPH/Regular [NovoLIN 70/30] 20 unit SUB-Q BIDDIAB #30 units 02/23/17 Unknown Rx Active Meds: Active Medications Cefazolin Sodium (Ancef/Sterile Water 2 Gm/20 Ml) 2 gm in 20 mls @ 80 mls/hr IV PREOP NR; Protocol Stop: 06/27/19 23:59 Oxytocin/Sodium Chloride (Pitocin/Ns 20 Unit/1000ml Drip) 20 units in 1,000 mls @ 0 mls/hr IV TITR UZIEL Lactated Ringer's (Lactated Ringers) 1,000 mls @ 2,250 mls/hr IV PREOP UZIEL Stop: 06/28/19 10:27 - Vital Signs Vital signs: Vital Signs Pulse Pulse Ox 71 100 06/27/19 09:36 06/27/19 09:36 Temp Pulse Resp BP Pulse Ox 98.3 F 70 18 109/72 100 06/27/19 09:40 06/27/19 09:46 06/27/19 09:40 06/27/19 09:38 06/27/19 09:46 - Physical Exam Cardiovascular: Normal S1, Normal S2 Lungs: Positive: Clear to auscultation Vulva: both: normal Deep Tendon Reflex Grade: Normal +2 - Obstetrical FHR: category 1 Uterine Contraction Monitor Mode: External Cervical Dilatation: 0 Cervical Effacement Percentage: 0 station: -2 Uterine Contraction Pattern: Absent Results Result Diagrams: 06/27/19 09:53 All other labs normal. Assessment and Plan - Patient Problems (1) 39 weeks gestation of Current Visit: Yes Status: Acute (2) Diabetes Current Visit: Yes Status: Acute Qualifiers: Diabetes mellitus type: type 2 (3) Breech presentation Current Visit: Yes Status: Acute (4) Hepatitis C Current Visit: Yes Status: Acute
[2019-06-27] MEDS ORDERED: ANCEF/STERILE WATER 2 GM/20 ML 2 GM/20 ML SYRINGE IV NR (10:00)
[2019-06-27] MEDS: LACTATED RINGERS 1,000 ML IV SCH ×2 (10:00→11:00)
[2019-06-27] MEDS ORDERED: PITOCin/NS 20 UNIT/1000ML DRIP 20 UNITS/1,000 ML BAG IV SCH ×2 (10:00→15:00)
[2019-06-27 10:05] LABS: Basophils % (Auto) 0.4 % (0.0-1.8); Eosinophils # (Auto) 0.1 K/mm3 (0.0-0.4); Eosinophils % (Auto) 0.5 % (0.0-4.3); Hematocrit 35.4 % (30.3-42.9); Hemoglobin 12.6 gm/dl (10.1-14.3); Lymphocytes # (Auto) 2.4 K/mm3 (1.2-5.4); Lymphocytes % (Auto) 25.4 % (13.4-35.0); Mean Corpuscular HGB Conc 35 % (30-34); Mean Corpuscular Volume 84 fl (79-97); Monocytes # (Auto) 0.8 K/mm3 (0.0-0.8); Platelet Count 167 K/mm3 (140-440); Red Blood Count 4.21 M/mm3 (3.65-5.03)
[2019-06-27] MEDS ORDERED: SUBLIMAZE ONE (10:33)
--- NOTE | 2019-06-27 11:46 | Anesthesia Day of Surgery ---
Anesthesia Day of Surgery - Day of Surgery Patient Examined: Yes Patient H&P Reviewed: Yes Patient is NPO: Yes Beta Blockers: No Cardiac Clearance: No Pulmonary Clearance: No Asa's Test: N/A
--- NOTE | 2019-06-27 11:46 | Anesthesia Consultation ---
Anesthesia Consult and Med Hx Date of service: 06/27/19 - Airway Anesthetic Teeth Evaluation: Good ROM Head & Neck: Adequate Mental/Hyoid Distance: Adequate Mallampati Class: Class II Intubation Access Assessment: Probably Good - Pulmonary Exam CTA: Yes - Cardiac Exam Cardiac Exam: RRR - Pre-Operative Health Status ASA Pre-Surgery Classification: ASA2 Proposed Anesthetic Plan: Spinal - Pulmonary Hx Smoking: No Hx Asthma: No Hx Respiratory Symptoms: No SOB: No COPD: No Home Oxygen Therapy: No Hx Pneumonia: No Hx Sleep Apnea: No - Cardiovascular System Hx Hypertension: No Hx Coronary Artery Disease: No Hx Heart Attack/AMI: No Hx Angina: No Hx Percutaneous Transluminal Coronary Angioplasty (PTCA): No Hx Cardia Arrhythmia: No Hx Pacemaker: No Hx Internal Defibrillator: No Hx Valvular Heart Disease: No Hx Heart Murmur: No Hx Peripheral Vascular Disease: No - Central Nervous System Hx Neuromuscular Disorder: No (strabismus bilater eyes ) Hx Seizures: No CVA: No Hx Back Pain: No Hx Psychiatric Problems: No - Gastrointestinal Hx Ulcer: No Hx Gastroesophageal Reflux Disease: Yes - Endocrine Hx Renal Disease: No Hx End Stage Renal Disease: No Hx Cirrhosis: No Hx Liver Disease: No Hx Insulin Dependent Diabetes: Yes Hx Non-Insulin Dependent Diabetes: No Hx Thyroid Disease: No Hx Hypothyroidism: No Hx Hyperthyroidism: No - Hematic Hx Anemia: No Hx Sickle Cell Disease: No - Other Systems Hx Alcohol Use: No Hx Substance Use: No Hx Cancer: No Hx Obesity: No
[2019-06-27] MEDS ORDERED: NARCAN 0.4 MG/1 ML IV PRN ×2 (11:47→14:02)
[2019-06-27] MEDS ORDERED: ZOFRAN IV PRN ×2 (11:47→14:02)
[2019-06-27] MEDS ORDERED: DILAUDID IV PRN ×2 (11:47)
[2019-06-27] MEDS ORDERED: BENADRYL IV PRN (11:47)
[2019-06-27] MEDS ORDERED: PHENERGAN PR PRN ×2 (11:47→14:02)
[2019-06-27] MEDS ORDERED: PHENERGAN PO PRN (11:47)
[2019-06-27] MEDS ORDERED: WATER FOR IRRIG STERILE IR ONE (11:53)
[2019-06-27] MEDS ORDERED: NACL 0.9% IR ONE (11:53)
[2019-06-27] MEDS ORDERED: SODIUM CHLORIDE FLUSH SYRINGE 10 ML IV NR ×2 (12:00→15:00)
[2019-06-27] MEDS ORDERED: PHENYLEPHRINE/NS Syringe 1,000 MCG/10 ML IV ONE (12:05)
[2019-06-27] MEDS ORDERED: ZOFRAN ONE (12:16)
--- NOTE | 2019-06-27 13:38 | Post Anesthesia Evaluation ---
- Post Anesthesia Evaluation Patient Participated: Yes Airway Patent: Yes Stable Respiratory Function: Yes Nausea/Vomiting: No Temp > 96.8F: Yes Pain Manageable: Yes Adequeate Hydration: Yes Anesthesia Complications: No Block Receding Appropriately: Yes Patient on Ventilator: No
[2019-06-27] MEDS ORDERED: TYLENOL PO PRN (14:02)
[2019-06-27] MEDS ORDERED: MORPHINE IV PRN ×2 (14:02)
[2019-06-27] MEDS ORDERED: TUCKS PAD TP PRN (14:02)
[2019-06-27] MEDS ORDERED: ANUCORT-HC PR PRN (14:02)
[2019-06-27] MEDS ORDERED: LANSINOH TP PRN (14:02)
[2019-06-27] MEDS ORDERED: SENOKOT PO PRN (14:02)
[2019-06-27] MEDS ORDERED: MILK OF MAGNESIA PO PRN (14:02)
[2019-06-27] MEDS ORDERED: MYLICON PO PRN (14:02)
[2019-06-27] MEDS ORDERED: TORADOL IV PRN (14:02)
--- NOTE | 2019-06-27 14:16 | Operative Report ---
Operative Report Operative Report: Preoperative diagnosis 1. SIUP at 39 weeks and 4 days gestation not in labor. 2. Breech presentation. 3. Pre-gestational type-2 diabetes. Postoperative diagnosis: Same. Procedure: Primary low-transverse section. Surgeon: Dr. aBtes Prn Occupational Therapist: none Anesthesia: epidural. IVF: RL 1800 cc EBL: 800 cc Urine: 200 cc clear Complications: none. Intraoperative findings: 1. A male infant found in a a single-footling breech presentation, delivered at 12:40 PM, Apgars 7 at 1 minute and 9 at 5 minutes, weight 8 lbs. 7 oz. 2. Normal fallopian tubes and ovaries bilaterally. Procedure details: Risks, benefits, and alternatives of the procedure were discussed in detail with the patient which included but not limited to the risk of infection, hemorrhage requiring blood transfusion, injury to the bowel or bladder and blood vessels. The patient expressed understanding, her questions were answered, and she gave informed consent. The patient was taken to the operating room with an IV fluid infusing Ringers lactate. In the operating room, she was placed in a sitting position and given spinal anesthesia. She was then placed in a dorsal supine position with a leftward tilt. Whalen catheter in Venodyne boots were placed. The abdomen was washed and she was prepared and draped in usual sterile fashion. After confirming adequate anesthesia, the Pfannenstiel skin incision was made in the lower abdomen about 2 cm above the pubic symphysis using the scalpel. This incision was carried down to the underlying fascia using the Bovie. The fascia was opened bilaterally in a curvilinear fashion using the Bovie. 2 straight Kocker clamps were used to grasp the upper edge of the fascia from which the underlying rectus abdominis muscles was dissected off using the Bovie. A similar procedure was done with the lower edge of the fascia to dissect the underlying rectus abdominis muscle. The muscle was bluntly from the midline by pulling. The parietal peritoneum was grasped with 2 hemostat clamps and entered sharply using Metzenbaum scissors. A quick survey of the anatomy revealed a gravid uterus, normal fallopian tubes and ovaries bilaterally. A bladder flap was created. Paulo'O retractor was placed in the incision for proper visualization. A low transverse incision was made in the lower uterine segment using the scalpel and extended bilaterally in a curvilinear fashion using bandage scissors. There was copious amount of clear amniotic fluids. The was found in an single-footling breech presentation. The infant was delivered up to the thorax, the anterior shoulder was delivered, the body was rotated 180 degree to bring the posterior shoulder to an anterior position from where it was delivered. The head was flexed and delivered atraumatically at 12:40 PM. The cord was clamped 2 and cut and the infant was handed off to the waiting ratchet setter. The infant was a male, Apgars were 7 at 1 minute and 9 at 5 minutes, weight was 8 pounds and 7 ounces. Cord blood was collected. The placenta was delivered manually and it was complete with a three-vessel cord. The uterine cavity was cleaned of clots and debris using dry lap sponges. The uterine incision was repaired in a running locked fashion using 0 Vicryl sutures. A second layer of imbrication was placed. The gutters were cleaned of clots and debris using dry lap sponges. After confirming adequate hemostasis, the instruments were removed from the abdominal cavity. The rectus muscle was reapproximated in an interrupted fashion using 0 Vicryl sutures. The fascia was closed in a running fashion using 0 Vicryl sutures. The subcutaneous adipose layer was closed with 2.0 chromic sutures. The skin was closed with elda. Sterile dressing was placed. The counts of laps, needles, sponges, and instruments were correct 2. The patient tolerated the procedure well, she was taken to the recovery room in a stable condition.
[2019-06-27] MEDS: TORADOL IV PRN (17:47)
[2019-06-27] MEDS ORDERED: LACTATED RINGERS 1,000 ML IV SCH (21:00)
[2019-06-27] MEDS ORDERED: HumuLIN R SUB-Q NR (23:18)
[2019-06-28] MEDS: TORADOL IV PRN (01:56)
[2019-06-28 02:31] LABS: Hematocrit 30.8 % (30.3-42.9); Hemoglobin 10.9 gm/dl (10.1-14.3)
[2019-06-28] MEDS: HumuLIN R SUB-Q SCH ×3 (07:25→17:18)
[2019-06-28] MEDS: IBUPROFEN PO PRN ×3 (08:00→21:13)
[2019-06-28] MEDS: PERCOCET 5/325 PO PRN ×3 (08:05→21:12)
[2019-06-28] MEDS: PRENATAL VITAMIN PO SCH (09:24)
[2019-06-28] MEDS: FEOSOL PO SCH (09:24)
[2019-06-28] MEDS ORDERED: HumuLIN R SUB-Q NR (23:50)
[2019-06-29] MEDS: PERCOCET 5/325 PO PRN ×3 (04:32→17:17)
[2019-06-29] MEDS: IBUPROFEN PO PRN ×3 (04:32→17:18)
[2019-06-29] MEDS: HumuLIN R SUB-Q SCH ×3 (09:21→21:04)
--- NOTE | 2019-06-29 10:28 | Progress Note ---
Assessment and Plan A: POD#2 s/p Primary C/S (breech presentation) Pre-gestational Diabetes; Insulin sliding scale (sugars 115-208) Breast/bottle feeding Pain well controlled Stable Desires discharge home P: Routine PP/PO orders Encouraged ambulation in room MD to manage Diabetes; Continue Sliding scale Subjective - Subjective Date of service: 06/29/19 Principal diagnosis: POD#2 s/p Primary c/s (breech presentation; Pre-gestational diabeties) Interval history: Se H&P and operative note Patient reports: appetite normal, voiding normally, pain well controlled, flatus, ambulating normally, no bowel movement : doing well, other (Breast/Bottle) Objective - Vital Signs Latest vital signs: Vital Signs Temp Pulse Resp BP BP Pulse Ox 06/29/19 08:46 97.5 F L 57 L 16 106/66 98 06/28/19 23:26 98.5 F 71 18 107/64 98 06/28/19 16:50 98.8 F 67 20 96/54 06/28/19 11:55 98 F 91 H 18 92/58 Intake and Output 06/28/19 06/29/19 06/29/19 23:59 07:59 15:59 Intake Total 240 Output Total 200 Balance 40 Intake: Oral 240 Output: Urine 200 Void 200 Other: Total, Intake Amount 120 Total, Output Amount 200 # Voids Void 1 1 - Exam Breasts: Present: normal, Cardiovascular: Present: Regular rate, Normal S1, Normal S2, No murmurs Lungs: Present: Clear to auscultation, Normal air movement Abdomen: Present: normal appearance, soft, tenderness (as expected post-op), normal bowel sounds. Absent: distention Vulva: both: normal Uterus: Present: firm, fundal height at umbilicus Extremities: Present: normal Deep Tendon Reflex Grade: Normal +2 Incision: Present: normal (LTI, closed with SQ sutures and Steri strips, CDI), dry, intact - Labs Labs: Abnormal lab results 06/28/19 06/28/19 06/28/19 Range/Units 11:20 12:16 17:10 POC Glucose 202 H 208 H 199 H (70-105) 06/28/19 06/29/19 06/29/19 Range/Units 22:10 00:30 09:16 POC Glucose 196 H 106 H 115 H (70-105)
[2019-06-29] MEDS: FEOSOL PO SCH (10:52)
[2019-06-29] MEDS: PRENATAL VITAMIN PO SCH (10:52)
[2019-06-30] MEDS: PERCOCET 5/325 PO PRN ×3 (00:18→12:10)
[2019-06-30] MEDS: IBUPROFEN PO PRN ×3 (00:19→12:09)
[2019-06-30] MEDS: HumuLIN R SUB-Q SCH ×2 (08:57→12:11)
--- NOTE | 2019-06-30 10:55 | Progress Note ---
Assessment and Plan A: POD#3 s/p Primary C/S (breech presentation) Pre-gestational Diabetes; Insulin sliding scale (sugars 52-208) Breast/bottle feeding Pain well controlled Stable Desires discharge home P: Routine PP/PO orders Encouraged ambulation in room Consult Dr. Paramjit ESPINOZA to manage Diabetes; Order received to place Consult with Hospitalist group. Spoke with Dr. Goel and Dr. Lancaster this am who will see pt today. Plan is to continue Sliding scale. 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 She has been managed through the ER prior to and has never used a sliding scale at home. Subjective - Subjective Date of service: 06/30/19 Principal diagnosis: POD#2 s/p Primary c/s (breech presentation; Pre-gestational diabeties) Interval history: Se H&P and operative note Patient reports: appetite normal, voiding normally, pain well controlled, flatus, bowel movement, ambulating normally : doing well Objective - Vital Signs Latest vital signs: Vital Signs Temp Pulse Resp BP Pulse Ox 06/30/19 07:50 97.9 F 20 L 06/30/19 07:48 97.6 F 55 L 18 107/67 99 06/30/19 05:58 18 06/30/19 05:57 18 06/30/19 03:47 98.2 F 53 L 18 106/67 99 06/30/19 00:19 20 06/30/19 00:18 20 06/30/19 00:06 98.7 F 51 L 17 116/69 98 06/29/19 19:52 98.2 F 59 L 16 121/73 98 06/29/19 15:56 99.7 F H 66 20 110/69 98 Intake and Output 06/29/19 06/30/19 06/30/19 23:59 07:59 15:59 Intake Total 240 1040 Balance 240 1040 Intake: Oral 240 1040 Other: Total, Intake Amount 240 320 Voiding Method Toilet # Voids 2 Void 2 1 # Bowel Movements 0 - Exam Breasts: Present: normal, Cardiovascular: Present: Regular rate, Normal S1, Normal S2, No murmurs Lungs: Present: Clear to auscultation, Normal air movement Abdomen: Present: normal appearance, soft, tenderness (as expected post-op), normal bowel sounds. Absent: distention Vulva: both: normal Uterus: Present: firm, fundal height at umbilicus Extremities: Present: normal, edema (1+) Deep Tendon Reflex Grade: Normal +2 Incision: Present: normal (LTI, closed with SQ sutures and steri strips. CDI), dry, intact - Labs Labs: Abnormal lab results 06/29/19 06/29/19 Range/Units 12:07 20:29 POC Glucose 145 H 176 H (70-105)
[2019-06-30] MEDS: FEOSOL PO SCH (12:10)
[2019-06-30] MEDS: PRENATAL VITAMIN PO SCH (12:11)
--- NOTE | 2019-06-30 15:13 | Consultation ---
History of Present Illness - Reason for Consult Consult date: 06/30/19 Past History Past Medical History: diabetes Past Surgical History: Social history: , lives with family, full code. denies: smoking, alcohol abuse Medications and Allergies Allergies Allergy/AdvReac Type Severity Reaction Status Date / Time No Known Allergies Allergy Verified 06/27/19 09:42 Home Medications Medication Instructions Recorded Confirmed Last Taken Type Insulin NPH/Regular [NovoLIN 70/30] 20 unit SUB-Q BIDDIAB #30 units 02/23/17 Unknown Rx Ibuprofen [Motrin] 800 mg PO Q8HR PRN #30 tablet 06/29/19 Unknown Rx oxyCODONE /ACETAMINOPHEN [Percocet 1 tab PO Q4HR #20 tab 06/29/19 Unknown Rx 5/325] Insulin NPH/Regular [Novolin 70/30] 20 unit SQ BIDDIAB #1 vial 06/30/19 Unknown Rx Active Meds: Active Medications Acetaminophen (Tylenol) 650 mg PO Q4H PRN PRN Reason: Fever >100.5/DHALIWAL Diphenhydramine HCl (Benadryl) 12.5 mg IV Q2H PRN PRN Reason: Itching Last Admin: 06/27/19 14:37 Dose: 12.5 mg Documented by: Ferrous Sulfate (Feosol) 325 mg PO QDAY UZIEL Last Admin: 06/30/19 12:10 Dose: 325 mg Documented by: Hydrocortisone Acetate (Anucort-Hc) 25 mg RI BID PRN PRN Reason: Hemorrhoids Hydromorphone HCl (Dilaudid) 0.5 mg IV Q4H PRN PRN Reason: breakthrough pain > 7/10 Oxytocin/Sodium Chloride (Pitocin/Ns 20 Unit/1000ml Drip) 20 units in 1,000 mls @ 0 mls/hr IV TITR UZIEL Oxytocin/Sodium Chloride (Pitocin/Ns 20 Unit/1000ml Drip) 20 units in 1,000 mls @ 250 mls/hr IV DIRECT UZIEL Lactated Ringer's (Lactated Ringers) 1,000 mls @ 125 mls/hr IV DIRECT UZIEL Last Admin: 06/27/19 20:06 Dose: 125 mls/hr Documented by: Ibuprofen (Ibuprofen) 800 mg PO Q6H PRN PRN Reason: Pain, Mild (1-3) Last Admin: 06/30/19 12:09 Dose: 800 mg Documented by: Insulin Human Regular (Humulin R) 0 units SUB-Q AC [facility] Last Admin: 06/30/19 12:11 Dose: 2 units Documented by: Ketorolac Tromethamine (Toradol) 15 mg IV Q6H PRN PRN Reason: Pain, Mild (1-3) Stop: 07/02/19 14:01 Ketorolac Tromethamine (Toradol) 30 mg IV Q6H PRN PRN Reason: Pain, Moderate (4-6) Stop: 07/02/19 14:01 Last Admin: 06/28/19 01:56 Dose: 30 mg Documented by: Magnesium Hydroxide (Milk Of Magnesia) 30 ml PO QHS PRN PRN Reason: Constip Unrelieved By Senna Morphine Sulfate (Morphine) 2 mg IV Q4H PRN PRN Reason: Pain, Moderate (4-6) Last Admin: 06/27/19 17:48 Dose: 2 mg Documented by: Morphine Sulfate (Morphine) 4 mg IV Q4H PRN PRN Reason: Pain , Severe (7-10) Last Admin: 06/27/19 22:15 Dose: 4 mg Documented by: Multi-Ingredient Ointment (Lansinoh) 1 applic TP PRN PRN PRN Reason: dryness/cracking Multivitamins/Iron/Calcium ( Vitamin) 1 each PO QDAY [facility] Last Admin: 06/30/19 12:11 Dose: 1 each Documented by: Naloxone HCl (Narcan 0.4 Mg/1 Ml) 0.1 mg IV Q2MIN PRN PRN Reason: Res Rate </= 8 or 02 SAT < 92% Ondansetron HCl (Zofran) 4 mg IV Q8H PRN PRN Reason: Nausea And Vomiting Oxycodone/Acetaminophen (Percocet 5/325) 1 tab PO Q6H PRN PRN Reason: Pain, Moderate (4-6) Last Admin: 06/30/19 12:10 Dose: 1 tab Documented by: Promethazine HCl (Phenergan) 25 mg PO Q6H PRN PRN Reason: Nausea And Vomiting Promethazine HCl (Phenergan) 25 mg RI Q6H PRN PRN Reason: N/V IF NPO AND NO IV ACCESS Senna (Senokot) 17.2 mg PO QHS PRN PRN Reason: Constipation Simethicone (Mylicon) 80 mg PO Q6H PRN PRN Reason: Gas pain Witch Esther/Glycerin (Tucks Pad) 1 each TP PRN PRN PRN Reason: Hemorrhoids/cleansing/soothing Exam - Physical Exam Narrative exam: Gen: Not in acute distress, lying in bed, HEENT: Normocephalic, atraumatic Neck: supple, no JVD Heart: S1 and S2 reg, no murmurs, rubs or gallop Lungs: Bilateral rhonchi, wheeze Abd: soft, non tender, non distended, normal BS, Ext: No edema, no clubbing, no cyanosis Neuro: Awake,alert, Oriented X 3. No focal neuro signs Psych: normal mood - Constitutional Vitals: Temp Pulse Resp BP Pulse Ox 97.9 F 57 L 20 107/69 99 06/30/19 07:50 06/30/19 07:50 06/30/19 07:50 06/30/19 07:50 06/30/19 07:48 Results - Labs CBC & Chem 7: 06/28/19 02:09 Labs: Abnormal lab results 06/29/19 06/30/19 06/30/19 Range/Units 20:29 10:49 11:40 POC Glucose 176 H 124 H (70-105) Hemoglobin A1c 7.2 H (4-6) % Assessment and Plan s/p Diabetes mellitus Will recommend discharge home on Novolin 70/30 bid at 20 Units bid I discussed with her to follow with a Physician in 1 week
[2019-06-30 18:23] VITALS: BP 111/69
--- NOTE | 2019-07-03 15:48 | Discharge Summary ---
Providers - Providers Date of Admission: 06/27/19 09:18 Date of discharge: 06/30/19 Attending physician: OZZY DUNN MD 06/30/19 10:48 Consult to Physician [CONS] Urgent Comment: Consulting Provider: FREDRICK STERLING Physician Instructions: Reason For Exam: POD#2 s/p c/s, Insulin dependent diabeties managem Primary care physician: OZZY DUNN MD Hospitalization Reason for admission: section Delivery: Procedure: section, primary low transverse complications: none Discharge diagnosis: IUP at term delivered [place] baby: male Condition at discharge: Good Disposition: DC-01 TO HOME OR SELFCARE Plan - Discharge Medications Prescriptions: Ibuprofen [Motrin] 800 mg PO Q8HR PRN #30 tablet PRN Reason: Pain , Severe (7-10) Insulin NPH/Regular [Novolin 70/30] 20 unit SQ BIDDIAB #1 vial oxyCODONE /ACETAMINOPHEN [Percocet 5/325] 1 tab PO Q4HR #20 tab - Provider Discharge Summary Activity: no sex for 6 weeks, no heavy lifting 4 weeks, no strenuous exercise Diet: routine Instructions: routine Additional instructions: [] Smoking cessation referral if applicable(refer to patient education folder for contact #) [] Refer to [facility] Booklet Call your doctor immediately for: * Fever > 100.5 * Heavy vaginal bleeding ( >1 pad per hour) * Severe persistent headache * Shortness of breath * Reddened, hot, painful area to leg or breast * Drainage or odor from incision. * Keep incision clean and dry at all times and follow doctor's instructions regarding bathing/showering - Follow up plan Follow up: OZZY DUNN MD [Primary Care Provider] - 7 Days Forms: [facility] Discharge Summary, Discharge Signature Page
== END 2019-06-30 15:25 | disposition home or self-care (01) | DRG 787 ==
LOC: APU 09:18 → OB 16:16
PROVIDERS: ADMIT Obstetrics & Gynecology; ATTEND Obstetrics & Gynecology
PROC: 10D00Z1 Extraction of Products of Conception, Low, Open Approach (ICD-10-PCS; principal; 2019-06-27)
DX: O99.62 Diseases of the digestive system complicating childbirth (principal); O98.42 Viral hepatitis complicating childbirth; K21.9 Gastro-esophageal reflux disease without esophagitis; O32.1XX0 Maternal care for breech presentation, not applicable or unspecified; O24.429 Gestational diabetes mellitus in childbirth, unspecified control; B19.20 Unspecified viral hepatitis C without hepatic coma; Z37.0 Single live birth; Z79.4 Long term (current) use of insulin; Z3A.39 39 weeks gestation of pregnancy; Z79.899 Other long term (current) drug therapy
CPT/HCPCS: 36415; 82962; 83036; 85014; 85018; 85025; 86850; 86900; 86901; G0378; J0690; J1170; J1200; J1815; J1885; J2270; J2370; J2405; J2590; J2765; J3010; J7120